=== PATIENT | male | born 1950 | race Caucasian/White ===

== ENCOUNTER 2021-05-23 18:33 | Emergency (ER) | payer MEDICARE ==
[~2021-05-23] VITALS: Ht 172.7 cm; Wt 90.0 kg
--- NOTE | 2021-05-23 18:36 | PHYS DOC ---
General Adult HPI: HPI: ".. I am having a pain flare.. in my Rt Stump.. It happen every so igor.. [place] with weather changes...I lost my leg with a farm tractor ran over it..." Patient is a 70 year old male who presents with above hx and right hip pain. Patient states he occasionally has severe pain in right hip from amputation as result of a tractor run over his right leg. Patient denies any recent falls. No fever or chills. The site is not hot to the touch. Is not erythemic. But it is tender to palpation. No recent travel. No specific ill contacts. Did receive Leonidas & Leonidas vaccine. Has not received flu vaccine yet. [facility] for [facility]. Primary area follow-up as at [facility] clinic. Dr. Lauren Review of Systems: Review of Systems: Constitutional: Denies fever or chills Eyes: Denies change in visual acuity HENT: Denies nasal congestion or sore throat Respiratory: Denies cough or shortness of breath Cardiovascular: Denies chest pain or edema GI: Denies abdominal pain, nausea, vomiting, bloody stools or diarrhea : Denies dysuria Musculoskeletal: Complains of right hip pain Integument: Denies rash Neurologic: Denies headache, focal weakness or sensory changes Endocrine: Denies polyuria or polydipsia Lymphatic: Denies swollen glands Psychiatric: Denies depression or anxiety Family History: Family History: Noncontributory to presentation Current Medications: Current Meds: See nursing for home meds Allergies: Allergies: Penicillin gabapentin Physical Exam: PE: Constitutional: Moderate acute distress, non-toxic appearance. [] HENT: Normocephalic, atraumatic, bilateral external ears normal, oropharynx moist, no oral exudates, nose normal. [] Eyes: PERRLA, EOMI, conjunctiva normal, no discharge. [] Neck: Normal range of motion, no tenderness, supple, no stridor. [] Cardiovascular:Heart rate regular rhythm, no murmur [] Lungs & Thorax: Bilateral breath sounds clear to auscultation [] Abdomen: Bowel sounds normal, soft, no tenderness, no masses, no pulsatile masses. [] Skin: Warm, dry, no erythema, no rash. [] Back: No tenderness, no CVA tenderness. [] Extremities: No tenderness, no cyanosis, no clubbing, ROM intact, no edema. [] Amputation at hip level right. Palpation elicits pain. Neurologic: Alert and oriented X 3, normal motor function, normal sensory function, no focal deficits noted. [] Psychologic: Affect anxious, judgement normal, mood normal. [] EKG: EKG: [] Radiology/Procedures: Radiology/Procedures: [] Heart Score: C/O Chest Pain: N/A Risk Factors: Risk Factors: DM, Current or recent (<one month) smoker, HTN, HLP, family history of CAD, obesity. Risk Scores: Score 0 - 3: 2.5% MACE over next 6 weeks - Discharge Home Score 4 - 6: 20.3% MACE over next 6 weeks - Admit for Clinical Observation Score 7 - 10: 72.7% MACE over next 6 weeks - Early Invasive Strategies Course & Med Decision Making: Course & Med Decision Making Pertinent Labs and Imaging studies reviewed. (See chart for details) Patient keep follow-up primary care. Further narcotic pain meds must be obtained from her primary care. May try lidocaine patches as needed for his phantom pain. Impression: 1. Right hip pain-phantom pain [] Dragon Disclaimer: Dragon Disclaimer: This electronic medical record was generated, in whole or in part, using a voice recognition dictation system. Departure Departure: Referrals: PCP,NO (PCP) Scripts Lidocaine (Lidocaine PATCH ) 1 Each Adh..patch 1 EACH TP DAILY for FOR LOCAL PAIN, #30 PATCH REMOVE AFTER 12 HOURS Prov: HARJINDER RIVERA MD 05/23/21 Naima Disclaimer This chart was dictated in whole or in part using Voice Recognition software in a busy, high-work load, and often noisy Emergency Department environment. It may contain unintended and wholly unrecognized errors or omissions. HARJINDER RIVERA MD May 23, 2021 18:36
[2021-05-23 18:42] VITALS: BP 120/86
[2021-05-23] MEDS ORDERED: KETOROLAC 60 MG/2 ML VIAL. IM ONE (19:00)
[2021-05-23] MEDS ORDERED: ORPHENADRINE CITRATE 60 MG/2 ML VIAL. IM ONE (19:00)
[2021-05-23] MEDS ORDERED: HYDROmorphone PF 2 MG/ML VIAL SQ ONE (19:00)
[2021-05-23] MEDS ORDERED: LIDO700A21 TP (19:17)
[2021-05-23] MEDS ORDERED: LIDOCAINE (700MG/PATCH) PATCH. TD ONE (19:20)
[2021-05-23] MEDS ORDERED: PATCH REMOVAL. MC SCH (21:00)
== END 2021-05-23 19:26 | disposition home or self-care (01) ==
LOC: ER 18:33
DX: M25.551 Pain in right hip (principal); Z89.621 Acquired absence of right hip joint; Z88.0 Allergy status to penicillin; Z88.8 Allergy status to other drugs, medicaments and biological substances
CPT/HCPCS: 96372; 99284; J1170; J1885; J2360

== ENCOUNTER 2021-05-24 07:51 | Emergency (ER) | payer MEDICARE ==
[~2021-05-24] VITALS: Ht 172.7 cm; Wt 90.0 kg
[2021-05-24 07:51] VITALS: BP 134/81
[~2021-05-24 07:51] MED LIST: LIDO700A21 TP
--- NOTE | 2021-05-24 08:24 | PHYS DOC ---
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 He was just here several hours ago for uncontrolled right stump pain. This is a chronic issue. There is been negative change in baseline health, trauma or other exposure. He was seen by a previous provider and had Toradol and IM Dilaudid injections which he stated lasted only couple of hours. He is subsequently back for repeat dose. Reports he drove here today. He has chronic pain specialist at [facility] but has not contacted these individuals regarding his recent exacerbation and pain. Review of Systems Review of Systems Fourteen body systems of review of systems have been reviewed. See HPI for pertinent positives and negative responses, other brownlee all other systems are negative, non-pertinent or non-contributory Allergies Allergies Allergies Coded Allergies Type Severity Reaction Last Updated Verified Penicillins Allergy Unknown Swelling 05/23/21 Yes gabapentin Allergy Unknown Swelling 05/23/21 Yes Physical Exam Physical Exam Constitutional: Well developed, well nourished, no acute distress, non-toxic appearance. HENT: Normocephalic, atraumatic, bilateral external ears normal, oropharynx moist, no oral exudates, nose normal. Eyes: PERRLA, EOMI, conjunctiva normal, no discharge. Neck: Normal range of motion, no tenderness, supple, no stridor. Cardiovascular: Heart rate regular per monitor Lungs & Thorax: No respiratory distress or accessory muscle use, bilateral chest rise Abdomen: Abdomen soft, non-tender, bowel sounds present in all quadrants, no guarding or rebound, nonacute abdomen. Skin: Warm, dry, no erythema, no rash. Back: No tenderness, no CVA tenderness. Extremities: No tenderness, no cyanosis, no clubbing, ROM intact, no edema. RLE amputation present and well appearing Neurologic: Alert and oriented X 3, grossly normal motor & sensory function, no focal deficits noted. Psychologic: Affect normal, mood normal, manipulative behavior Current Patient Data Vital Signs Vital Signs Date Time Temp Pulse Resp B/P (MAP) Pulse Ox O2 Delivery O2 Flow Rate FiO2 05/24/21 07:51 97.9 98 18 134/81 (98) 99 Room Air Vital Signs Date Time Temp Pulse Resp B/P (MAP) Pulse Ox O2 Delivery O2 Flow Rate FiO2 05/24/21 07:51 97.9 98 18 134/81 (98) 99 Room Air EKG EKG [] Radiology/Procedures Radiology/Procedures [] Heart Score C/O Chest Pain: No Risk Factors: Risk Factors: DM, Current or recent (<one month) smoker, HTN, HLP, family history of CAD, obesity. Risk Scores: Risk Factors: DM, Current or recent (<one month) smoker, HTN, HLP, family history of CAD, obesity. Course & Med Decision Making Course & Med Decision Making ABCs unremarkable Grayson here for pain control. He is being manipulative and changes his presenting story several times. States he tried calling all of his chronic pain physicians but later states his phone is broken and he has no calling capabilities. States he drove but won't drive home if he gets something I disclosed I do not feel comfortable giving more pain meds in light of him recently receiving IM dilaudid and fact that [facility] review shows he has numerous active narcotic prescriptions. I discussed and recommended grayson contact his outpatient physicians to discuss this issue further. No indication for further ER workup, intervention or admission. Patient discharged. Dragon Disclaimer Dragon Disclaimer This electronic medical record was generated, in whole or in part, using a voice recognition dictation system. Departure Departure: Impression: Primary Impression: Inadequate pain control Disposition: HOME / SELF CARE / HOMELESS Condition: STABLE Referrals: PCP,NO (PCP) Additional Instructions: As discussed prior to ER departure, I did not feel he was safe nor indicated to repeat any dose of narcotic pain medication given the fact that you just received some at our facility several hours prior and due to the fact that you do not have a wagon driver. You have PCP and pain management physicians whom you have not contacted, these individuals will know your personal case the best and given the fact that you have numerous narcotic pain prescriptions that are currently active, it is best you discuss changing your pain management relief with them. You are at high risk for polypharmacy and negative outcomes related to narcotic pain medication that include respiratory depression and potentially , please use prescribed medications as indicated only and do not take off label in attempt to improve your pain. MARGARITO MILLS DO May 24, 2021 08:24
== END 2021-05-24 08:32 | disposition home or self-care (01) ==
LOC: ER 07:51
DX: G89.29 Other chronic pain (principal); Z89.621 Acquired absence of right hip joint; Z88.0 Allergy status to penicillin; Z88.8 Allergy status to other drugs, medicaments and biological substances
CPT/HCPCS: 99282

== ENCOUNTER 2021-07-11 07:39 | Emergency (ER) | payer MEDICARE ==
[~2021-07-11] VITALS: Ht 172.7 cm; Wt 90.0 kg
[2021-07-11 07:42] VITALS: BP 160/98
--- NOTE | 2021-07-11 08:06 | PHYS DOC ---
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 Patient has right lower extremity amputation and has had chronic phantom pain in issues for years. He has been well managed in outpatient setting by [facility] system and other subspecialists. Reports he is pending [facility] pain management visit in 2 days time for consultation visit due to uncontrolled pain. Nonetheless, reports to our ER today seeking acute pain control for his chronic issues. Denies any recent trauma, falls or other known exacerbating factors. Just states the pain medications he has been using for years have not helped. He reports he contacted his primary care physician 2 weeks ago regarding this and they refused any further treatment for him which is why he has been seeking acute pain control at other facilities. States last time he was here he was given a prescription of pain medication to go home with and is eager for repeat prescription today Review of Systems Review of Systems Fourteen body systems of review of systems have been reviewed. See HPI for pertinent positives and negative responses, other brownlee all other systems are negative, non-pertinent or non-contributory Allergies Allergies Allergies Coded Allergies Type Severity Reaction Last Updated Verified Penicillins Allergy Unknown Swelling 05/23/21 Yes gabapentin Allergy Unknown Swelling 05/23/21 Yes Physical Exam Physical Exam Constitutional: Well developed, well nourished, no acute distress, non-toxic appearance. HENT: Normocephalic, atraumatic, bilateral external ears normal, oropharynx moist, no oral exudates, nose normal. Eyes: PERRLA, EOMI, conjunctiva normal, no discharge. Neck: Normal range of motion, no tenderness, supple, no stridor. Cardiovascular: Heart rate regular, sinus rhythm, no murmurs rubs or gallops Lungs & Thorax: Bilateral breath sounds clear to auscultation Abdomen: Bowel sounds normal, soft, no tenderness, no masses, no pulsatile masses. Nonsurgical abdomen, no peritoneal signs Skin: Warm, dry, no erythema, no rash. Back: No tenderness, no CVA tenderness. Extremities: No tenderness, no cyanosis, no clubbing, ROM intact, no edema. Right lower extremity AKA that is well-appearing. Pelvis nontender bilaterally Neurologic: Alert and oriented X 3, grossly normal motor & sensory function, no focal deficits noted. Psychologic: Affect normal, judgement normal, mood normal. EKG EKG [] Radiology/Procedures Radiology/Procedures [] Heart Score C/O Chest Pain: No Risk Factors: Risk Factors: DM, Current or recent (<one month) smoker, HTN, HLP, family history of CAD, obesity. Risk Scores: Risk Factors: DM, Current or recent (<one month) smoker, HTN, HLP, family history of CAD, obesity. Course & Med Decision Making Course & Med Decision Making ABCs unremarkable HPI and physical exam nonconcerning for any emergent or surgical issues Patient here for pain control for chronic process. [facility] reviewed, patient has been getting consistent clonazepam, oxycodone, pregabalin prescriptions [facility] I discussed with patient that I was not comfortable prescribing him any narcotic pain medications today as he is high risk for polypharmacy. Joint decision made for 5 mg subcu morphine injection with instructions to immediately call PCP for outpatient follow-up Naima Disclaimer Naima Disclaimer This electronic medical record was generated, in whole or in part, using a voice recognition dictation system. Departure Departure: Impression: Primary Impression: Chronic pain Disposition: HOME / SELF CARE / HOMELESS Condition: STABLE Referrals: PCP,SHERIE (PCP) Patient Instructions: Chronic Pain, Chronic Pain Management Additional Instructions: As discussed prior to ER departure, you need to contact your primary care physician to review ER visit today. The emergency room is not a place to seek continued care for your chronic pain control for which you are prescribed numerous high risk medications in outpatient setting. You should continue to follow-up with your primary care provider for continuity sake. Please keep your upcoming pain management visit at [facility] for further evaluation of your chronic right hip/lower extremity issues. If any emergent or surgical issues arise prior to outpatient follow-up please do not hesitate to come back for repeat evaluation. MARGARITO MILLS DO Jul 11, 2021 08:06
[2021-07-11] MEDS ORDERED: MORPHINE SULFATE 10 MG/ML SYRINGE. SQ ONE (08:30)
== END 2021-07-11 08:47 | disposition home or self-care (01) ==
LOC: ER 07:39
DX: G89.29 Other chronic pain (principal); F43.10 Post-traumatic stress disorder, unspecified; Z89.611 Acquired absence of right leg above knee; Z88.0 Allergy status to penicillin; Z88.8 Allergy status to other drugs, medicaments and biological substances
CPT/HCPCS: 96372; 99283; J2270

== ENCOUNTER 2021-08-23 10:08 | Emergency (ER) | payer MEDICARE ==
[~2021-08-23] VITALS: Ht 172.7 cm; Wt 90.0 kg
--- NOTE | 2021-08-23 10:24 | PHYS DOC ---
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 Patient is well-known to the emergency department. He frequently presents with pain in the stump where he had prior amputation on the right leg. Today, he comes in with the same pain stating that his normal medications, fentanyl patch and OxyContin or oxycodone have not been helping. Pain was worse over the last 24 hours. Secondary complaint is possible sinus infection. He complains of congestion in the upper airway and sinuses. Sore throat and sinus discomfort and congestion in the ears over the last 2 to 3 days. Has required antibiotics for sinus infection in the past. No fever. He is eating and drinking normally. No GI symptoms. Review of Systems Review of Systems Constitutional: Denies fever or chills Eyes: Denies change in visual acuity, redness, or eye pain HENT: As documented in HPI Respiratory: Denies cough or shortness of breath Cardiovascular: No additional information not addressed in HPI GI: Denies abdominal pain, nausea, vomiting, bloody stools or diarrhea : Denies dysuria or hematuria Musculoskeletal: Chronic stump pain Integument: Denies rash or skin lesions Neurologic: Denies headache All other systems were reviewed and found to be within normal limits, except as documented in this note. Allergies Allergies Allergies Coded Allergies Type Severity Reaction Last Updated Verified Penicillins Allergy Unknown Swelling 05/23/21 Yes gabapentin Allergy Unknown Swelling 05/23/21 Yes Physical Exam Physical Exam Constitutional: Well developed, well nourished, no acute distress, non-toxic appearance. HENT: TMs are dull bilaterally. Mild sinus tenderness to palpate over frontal and maxillary sinuses. Nares are congested. Posterior nasal drainage is present on exam of the posterior oropharynx. Eyes: PERRLA, EOMI, conjunctiva normal, no discharge. Neck: Normal range of motion, no tenderness, supple, no stridor. Cardiovascular:Heart rate regular rhythm Lungs & Thorax: Bilateral breath sounds clear to auscultation Skin: Warm, dry, no erythema, no rash. Extremities: chronic phantom limb pain Neurologic: Alert and oriented X 3 Psychologic: Affect normal EKG EKG [] Radiology/Procedures Radiology/Procedures [] Heart Score C/O Chest Pain: N/A Risk Factors: Risk Factors: DM, Current or recent (<one month) smoker, HTN, HLP, family history of CAD, obesity. Risk Scores: Risk Factors: DM, Current or recent (<one month) smoker, HTN, HLP, family history of CAD, obesity. Course & Med Decision Making Course & Med Decision Making Pertinent Labs and Imaging studies reviewed. (See chart for details) ED summary: Patient seen in the ER as documented above. Requesting additional medication for pain in addition to what he would normally take. In the ER, he is given 1 dose of intramuscular morphine. Also started on azithromycin for treatment of presumed sinus infection. He is stable for discharge home and will sweet pickle maker the rest of his Z-Miguel at the pharmacy later today with the next dose being due tomorrow. No indication for additional work-up today or admission to the hospital. Recommended that he follow-up with his primary care doctor specifically regarding control of his chronic pain, but also if his upper respiratory symptoms do not improve. Dragon Disclaimer Dragon Disclaimer This electronic medical record was generated, in whole or in part, using a voice recognition dictation system. Departure Departure: Impression: Primary Impression: Upper respiratory infection Additional Impression: Chronic pain Disposition: HOME / SELF CARE / HOMELESS Condition: GOOD Referrals: NON,STAFF (PCP) Patient Instructions: Chronic Pain, Sinusitis, [id number] Scripts Azithromycin (AZITHROMYCIN TABLET) 250 Mg Tablet 250 MG PO DAILY for ANTI-BIOTIC for 4 Days, #4 TAB 0 Refills Prov: MOIRA SUAREZ DO 08/23/21 Problem Qualifiers MOIRA SUAREZ DO Aug 23, 2021 10:24
[2021-08-23 10:48] VITALS: BP 160/98
[2021-08-23] MEDS ORDERED: MORPHINE SULFATE 4 MG/ML DISP.SYRIN. IM ONE (11:00)
[2021-08-23] MEDS ORDERED: AZITHROMYCIN 250 MG TABLET. PO ONE (11:00)
[2021-08-23] MEDS ORDERED: AZIT250T6 PO (11:04)
== END 2021-08-23 11:16 | disposition home or self-care (01) ==
LOC: ER 10:08
DX: J06.9 Acute upper respiratory infection, unspecified (principal); G89.29 Other chronic pain; Z89.621 Acquired absence of right hip joint; Z88.0 Allergy status to penicillin; Z88.8 Allergy status to other drugs, medicaments and biological substances
CPT/HCPCS: 96372; 99283; J2270

== ENCOUNTER 2021-09-08 09:30 | Emergency (ER) | payer MEDICARE ==
[~2021-09-08] VITALS: Ht 172.7 cm; Wt 90.9 kg
[~2021-09-08 09:30] MED LIST changes: +AZIT250T6 PO
[2021-09-08] MEDS ORDERED: IV NORMAL SALINE 1,000ML 1,000 ML IV ONE (10:15)
--- NOTE | 2021-09-08 10:16 | PHYS DOC ---
Past History Additional Past Medical Histor: PTSD Past Surgical History: Cholecystectomy Additional Past Surgical Histo: PAIN STIMULATOR, RIGHT LEG AMPUTATION Alcohol Use: None General Adult EDM: Chief Complaint: FLANK PAIN HPI: HPI: Patient is a 71-year-old male who presents to the emergency department today for left flank pain that started last night. Patient is also reporting right phantom hip pain. He reports that he occasionally experiences this after his right leg amputation. The last episode of phantom pain was a month ago. Patient rates his pain 8 out of 10. He has been taking oxycodone at home for it. Patient has a history of bladder cancer and kidney stones. He denies nausea, vomiting, diarrhea, urinary symptoms, blood in his stools, hematuria, fevers. Review of Systems: Review of Systems: Constitutional: See HPI GI: See HPI : See HPI Musculoskeletal: See HPI Allergies: Allergies: Allergies Coded Allergies Type Severity Reaction Last Updated Verified Penicillins Allergy Unknown Swelling 09/08/21 Yes gabapentin Allergy Unknown Swelling 09/08/21 Yes Physical Exam: PE: Constitutional: Well developed, well nourished, no acute distress, non-toxic appearance. [] HENT: Normocephalic, atraumatic, bilateral external ears normal, oropharynx moist, no oral exudates, nose normal. [] Eyes: PERRL, EOMI, conjunctiva normal, no discharge. [] Neck: Normal range of motion, no tenderness, supple, no stridor. [] Cardiovascular:Heart rate regular rhythm, no murmur [] Lungs & Thorax: Bilateral breath sounds clear to auscultation [] Abdomen: Bowel sounds normal, soft, no tenderness, no masses, no pulsatile masses. [] Skin: Warm, dry, no erythema, no rash. [] Back: No tenderness, left CVA tenderness Extremities: No tenderness, no cyanosis, no clubbing, ROM intact, no edema. [] Right leg amputation Neurologic: Alert and oriented X 3, normal motor function, normal sensory function, no focal deficits noted. [] Psychologic: Affect normal, judgement normal, mood normal. [] Current Patient Data: Labs: Laboratory Tests Test 09/08/21 09:45 09/08/21 10:20 Urine Collection Type Unknown Urine Color Yellow Urine Clarity Clear Urine pH 5.5 Urine Specific [place] 1.020 Urine Protein 30 mg/dl Urine Glucose (UA) 100 mg/dL Urine Ketones (Stick) Neg mg/dL Urine Blood Neg Urine Nitrite Neg Urine Bilirubin Neg Urine Urobilinogen Dipstick 0.2 mg/dL Urine Leukocyte Esterase Neg Urine RBC 0 /HPF Urine WBC 5-10 /HPF Urine Squamous Epithelial Cells Few /LPF Urine Bacteria Few /HPF Urine Mucus Slight /LPF White Blood Count 6.6 x10^3/uL Red Blood Count 4.32 x10^6/uL Hemoglobin 13.0 g/dL Hematocrit 38.8 % Mean Corpuscular Volume 90 fL Mean Corpuscular Hemoglobin 30 pg Mean Corpuscular Hemoglobin Concent 34 g/dL Red Cell Distribution Width 15.3 % Platelet Count 209 x10^3/uL Neutrophils (%) (Auto) 59 % Lymphocytes (%) (Auto) 28 % Monocytes (%) (Auto) 9 % Eosinophils (%) (Auto) 3 % Basophils (%) (Auto) 1 % Neutrophils # (Auto) 3.9 x10^3uL Lymphocytes # (Auto) 1.9 x10^3/uL Monocytes # (Auto) 0.6 x10^3/uL Eosinophils # (Auto) 0.2 x10^3/uL Basophils # (Auto) 0.1 x10^3/uL Sodium Level 136 mmol/L Potassium Level 4.0 mmol/L Chloride Level 104 mmol/L Carbon Dioxide Level 26 mmol/L Anion Gap 6 Blood Urea Nitrogen 22 mg/dL Creatinine 1.1 mg/dL Estimated GFR (Cockcroft-Gault) 65.8 BUN/Creatinine Ratio 20 Glucose Level 142 mg/dL Calcium Level 9.4 mg/dL Total Bilirubin 0.2 mg/dL Aspartate Amino Transf (AST/SGOT) 30 U/L Alanine Aminotransferase (ALT/SGPT) 49 U/L Alkaline Phosphatase 69 U/L Total Protein 7.0 g/dL Albumin 3.3 g/dL Albumin/Globulin Ratio 0.9 Lipase 114 U/L Current Medications Medications (Trade) Dose Ordered Sig/Jenny Route PRN Reason Start Time Stop Time Status Last Admin Dose Admin Sodium Chloride 1,000 ml @ 1,000 mls/hr 1X ONCE IV 09/08/21 10:15 09/08/21 11:14 DC 09/08/21 10:36 Fentanyl Citrate (Fentanyl 2ml Vial) 50 mcg 1X ONCE IVP 09/08/21 10:15 09/08/21 10:16 DC 09/08/21 10:37 Fentanyl Citrate (Fentanyl 2ml Vial) 50 mcg 1X ONCE IVP 09/08/21 11:45 09/08/21 11:46 DC 09/08/21 11:39 Vital Signs: Vital Signs Date Time Temp Pulse Resp B/P (MAP) Pulse Ox O2 Delivery O2 Flow Rate FiO2 09/08/21 09:50 98.7 93 18 167/91 (116) 94 Room Air EKG: EKG: [] Radiology/Procedures: Radiology/Procedures: []PROCEDURE: CT ABDOMEN PELVIS WO CONTRAST Axial CT images of the abdomen and pelvis with coronal and sagittal reformats were performed without contrast per renal colic protocol. Exposure: One or more of the following individualized dose reduction techniques were utilized for this examination: 1. Automated exposure control 2. Adjustment of the mA and/or kV according to patient size 3. Use of iterative reconstruction technique Indication: Reason: left flank pain r/o kidney stone / Spl. Instructions: / History: Comparison: None. Findings: Multiple bilateral nonobstructive collecting system calculi are identified. There are multiple cysts seen throughout the bilateral kidneys. Multiple of these cysts are hyperdense. The largest suspicious cyst is seen in the right mid pole posterior kidney within the parenchyma measuring 2.6 x 2.3 cm. There is a similar hyperdense cyst in the left mid pole kidney measuring 1.3 cm. Several complex cysts are seen at the inferior pole of the right kidney. Additionally there is what appears to be a complex septated cyst with normal density in the right upper pole measuring 2.3 x 1.8 cm. No hydronephrosis, perinephric fat stranding, or hydroureter are seen bilaterally. Patient status post cholecystectomy. Liver is hypodense relative to the spleen. The appendix is visualized and is unremarkable in appearance. There is dense calcific atherosclerotic disease particularly in the right common iliac artery. 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 There is associated remodeling of the acetabulum. There is diffuse osteopenia. There is age-appropriate degenerative change. Neurostimulator devices are identified in the lumbar spine. The remainder of the non contrasted abdomen and pelvis is normal in appearance, although evaluation is limited on an unenhanced exam. Impression: 1. Nonobstructive collecting system calculi bilaterally. Additionally there are multiple complex cysts identified within the bilateral kidneys. Recommend three- phase CT study or at the least ultrasound to document the internal contents of the cyst as a solid mass cannot be excluded particularly in the hyperdense cysts identified. 2. Hepatic steatosis. 3. Postoperative changes of the lower extremities described above. Electronically signed by: Alex Valdivia MD (09/08/2021 10:39 AM) [id number] DICTATED AND SIGNED BY: ALEX VALDIVIA MD DATE: 09/08/21 1035 CC: KATELYN DAWSON APRN; SATISH GUEVARA MD ~ STATUS: REG ER ORD. PHYSICIAN: KATELYN DAWSON APRN REASON: bilateral cyst vs masses on kidneys PROCEDURE: RENAL COMPLETE BILATERAL INDICATION: Reason: bilateral cyst vs masses on kidneys / Spl. Instructions: / History: COMPARISON: CT from same day TECHNIQUE: Grayscale and color ultrasound images obtained of the bilateral kidneys and bladder. FINDINGS: Right Kidney: 114 mm. Left Kidney: 115 mm. No hydronephrosis bilaterally. Multiple bilateral renal cysts are identified. Largest of which on right measures 47 x 38 mm. Largest on the left measures up to about 15 mm. Many of the bilateral renal lesions seen on CT are not well seen on this examination therefore not characterized. Bladder: Prevoid urinary bladder volume is 90 cc. IMPRESSION: * There are numerous bilateral renal lesions seen on recent CT with the majority of these not well evaluated on ultrasound secondary to overlying structures obscuring. Again the higher density lesions could be secondary to either high density cystic lesions or solid mass and given that this ultrasound is highly limited if more complete evaluation is needed CT or MRI renal protocol could further assess. Electronically signed by: Emely Prince MD (09/08/2021 12:26 PM) [id number] DICTATED AND SIGNED BY: EMELY PRINCE MD DATE: 09/08/21 1222 CC: KATELYN DAWSON APRN; SATISH GUEVARA MD ~ Heart Score: C/O Chest Pain: N/A Risk Factors: Risk Factors: DM, Current or recent (<one month) smoker, HTN, HLP, family history of CAD, obesity. Risk Scores: Score 0 - 3: 2.5% MACE over next 6 weeks - Discharge Home Score 4 - 6: 20.3% MACE over next 6 weeks - Admit for Clinical Observation Score 7 - 10: 72.7% MACE over next 6 weeks - Early Invasive Strategies Course & Med Decision Making: Course & Med Decision Making Pertinent Labs and Imaging studies reviewed. (See chart for details) [] Patient resents to the emergency department for left flank pain that started last night. He is also reporting right phantom limb pain. Work-up in the ER consisted of blood work, urinalysis and CT imaging of abdomen and pelvis rule out kidney stones as patient does have a history. Patient treated with IV fluids and pain medication. CBC, CMP and lipase were unremarkable. Patient's urinalysis shows few bacteria and 5-10 white blood cells with few squamous cells, no leukocytes or nitrites or blood. This is likely contaminated. CT scan shows nonobstructing calculi in the collecting system and possible cyst on bilateral kidneys. Imaging also showed right hip limitation age-appropriate degenerative changes. The radiologist recommended a ultrasound of the abdomen to determine if these were solid masses versus cysts which was ordered which was nondiagnostic. Following treatment in the emergency department, patient reports that his pain has improved. He has oxycodone at home that he can take for his chronic pain. I advised him to follow-up with his primary care provider at the [facility]. I discussed with patient all findings and diagnostic testing as well as the need to follow- up with PCP for further evaluation and treatment or return to the ER if any new or worsening symptoms. Strict return precautions were also discussed at length. Patient voiced understanding and agreement with the plan. Patient is hemodynamically stable at the time of disposition. [place] Disclaimer: Naima Disclaimer: This electronic medical record was generated, in whole or in part, using a voice recognition dictation system. Departure Departure: Impression: Primary Impression: Flank pain Disposition: 01 HOME / SELF CARE / HOMELESS Condition: GOOD Referrals: SATISH GUEVARA MD (PCP) Patient Instructions: Flank Pain, [id number] Additional Instructions: You are seen in the emergency department today for flank pain. As we discussed, you have some kidney stones in your kidneys and possible cyst on your kidneys that you will need to follow-up with your primary care provider regarding. Your blood work was unremarkable. Your urinalysis was likely contaminated with skin cells but if you start to develop urinary symptoms like pain with urination please see your primary care provider. Please continue taking your oxycodone that you have at home. Follow-up with your primary care provider regarding your ER visit within 2 days. Return to the emergency department if you develop any urinary symptoms, increased pain, loss of bowel or bladder, blood in your urine, loss of sensation in your groin, nausea, vomiting, high fevers refractory to treatment or any new or worsening concerns. KATELYN DAWSON MANAGEMENT ENGINEER Sep 08, 2021 10:16
[2021-09-08 10:29] LABS: CLARITY,URINE CLEAR; COLOR,URINE YELLOW; GLUCOSE,URINE 100 mg/dL (NEG)
[2021-09-08 10:30] LABS: NITRITE,URINE NEG (NEG); UROBILINOGEN,URINE 0.2 mg/dL (0.2 mg/dL)
[2021-09-08 10:31] LABS: BACTERIA,URINE FEW /HPF (0-FEW); RBC,URINE 0 /HPF (0-2); SQUAMOUS EPITHELIAL CELL,UR FEW /LPF
[2021-09-08 10:40] LABS: BASO # 0.1 x10^3/uL (0.0-0.2); BASO % 1 % (0-3); EOS # 0.2 x10^3/uL (0.0-0.7); EOS % 3 % (0-3); HEMATOCRIT 38.8 % (39.0-53.0); LYMPH # 1.9 x10^3/uL (1.0-4.8); LYMPH % 28 % (24-48); MEAN CORPUSCULAR HEMOGLOBIN 30 pg (25-35); MEAN CORPUSCULAR HGB CONC 34 g/dL (31-37); MEAN CORPUSCULAR VOLUME 90 fL (79-100); MONO # 0.6 x10^3/uL (0.0-1.1); MONO % 9 % (0-9); NEUT # 3.9 x10^3uL (1.8-7.7); NEUT % 59 % (31-73); PLATELET COUNT 209 x10^3/uL (140-400); RED BLOOD COUNT 4.32 x10^6/uL (4.30-5.70); RED CELL DISTRIBUTION WIDTH 15.3 % (11.5-14.5); WHITE BLOOD COUNT 6.6 x10^3/uL (4.0-11.0)
--- NOTE | 2021-09-08 10:41 | RAD ---
Axial CT images of the abdomen and pelvis with coronal and sagittal reformats were performed without contrast per renal colic protocol. Exposure: One or more of the following individualized dose reduction techniques were utilized for thi s examination: 1. Automated exposure control 2. Adjustment of the mA and/or kV according to patient size 3. Use of iterative reconstruction technique Indication: Reason: left flank pain r/o kidney stone / Spl. Instructions: / History: Comparison: None. Findings: Multiple bilateral nonobstructive collecting system calculi are identified. There are multiple cysts seen throughout the bilateral kidneys. Multiple of these cysts are hyperdense. The largest suspicious cyst is seen in the right mid pole posterior kidney within the parenchyma measuring 2.6 x 2.3 cm. Th ere is a similar hyperdense cyst in the left mid pole kidney measuring 1.3 cm. Several complex cysts are seen at the inferior pole of the right kidney. Additionally there is what appears to be a complex septated cyst with normal density in the right upper pole measuring 2.3 x 1.8 cm. No hydronephrosis , perinephric fat stranding, or hydroureter are seen bilaterally. Patient status post cholecystectomy. Liver is hypodense relative to the spleen. The appendix is visua lized and is unremarkable in appearance. There is dense calcific atherosclerotic disease particularly in the right common iliac artery. Patient status post left hip arthroplasty and amputation of the ri ght hip. There is associated remodeling of the acetabulum. There is diffuse osteopenia. There is age- appropriate degenerative change. Neurostimulator devices are identified in the lumbar spine. The pavel chris of the non contrasted abdomen and pelvis is normal in appearance, although evaluation is limited on an unenhanced exam. Impression: 1. Nonobstructive collecting system calculi bilaterally. Additionally there are multiple complex cyst s identified within the bilateral kidneys. Recommend three-phase CT study or at the least ultrasound to document the internal contents of the cyst as a solid mass cannot be excluded particularly in the hyperdense cysts identified. 2. Hepatic steatosis. 3. Postoperative changes of the lower extremities described above. Electronically signed by: Alex Valdivia MD (09/08/2021 10:39 AM) [id number]
[2021-09-08 10:48] LABS: CALCIUM 9.4 mg/dL (8.5-10.1); CREATININE 1.1 mg/dL (0.7-1.3); GFR 65.8
[2021-09-08 10:53] LABS: ALBUMIN 3.3 g/dL (3.4-5.0); ALBUMIN/GLOBULIN RATIO 0.9 (1.0-1.7); TOTAL BILIRUBIN 0.2 mg/dL (0.2-1.0)
--- NOTE | 2021-09-08 12:29 | RAD ---
INDICATION: Reason: bilateral cyst vs masses on kidneys / Spl. Instructions: / History: COMPARISON: CT from same day TECHNIQUE: Grayscale and color ultrasound images obtained of the bilateral kidneys and bladder. FINDINGS: Right Kidney: 114 mm. Left Kidney: 115 mm. No hydronephrosis bilaterally. Multiple bilateral renal cysts are identified. Largest of which on right measures 47 x 38 mm. Largest on the left measures up to about 15 mm. Many of the bilateral renal lesions seen on CT are not well seen on this examination therefore not characterized. Bladder: Prevoid urinary bladder volume is 90 cc. IMPRESSION: * There are numerous bilateral renal lesions seen on recent CT with the majority of these not well e valuated on ultrasound secondary to overlying structures obscuring. Again the higher density lesions could be secondary to either high density cystic lesions or solid mass and given that this ultrasound is highly limited if more complete evaluation is needed CT or MRI renal protocol could further asses s. Electronically signed by: Kemal Lauren MD (09/08/2021 12:26 PM) [id number]
[2021-09-08 13:00] VITALS: BP 140/87
[2021-09-12] MEDS ORDERED: LEVO750T5 PO (13:07)
== END 2021-09-08 13:05 | disposition home or self-care (01) ==
LOC: ER 09:30
DX: R10.9 Unspecified abdominal pain (principal); M25.551 Pain in right hip; Z89.611 Acquired absence of right leg above knee; Z87.442 Personal history of urinary calculi; Z90.49 Acquired absence of other specified parts of digestive tract; Z88.0 Allergy status to penicillin; Z88.8 Allergy status to other drugs, medicaments and biological substances
CPT/HCPCS: 36415; 74176; 76770; 80053; 81001; 83690; 85025; 87077; 87086; 87186; 96374; 96376; 99284; J3010; J7030; 99285

== ENCOUNTER 2021-09-08 23:16 | Emergency (ER) | payer MEDICARE ==
[~2021-09-08] VITALS: Ht 172.7 cm; Wt 90.9 kg
[2021-09-08 23:27] VITALS: BP 140/87
--- NOTE | 2021-09-08 23:27 | PHYS DOC ---
Past History Additional Past Medical Histor: PTSD Past Surgical History: Cholecystectomy Additional Past Surgical Histo: PAIN STIMULATOR, RIGHT LEG AMPUTATION Alcohol Use: None General Adult HPI: HPI: ". I was here earlier.. and they did big work up... but I having a lot of pain.. It may be my phatom pain.. I do have a nerve stimulator.. and usually see the pain clinic at ... I just need some tonight... it may be weather.. " Patient is a 71 year old male who presents with above hx and complaints lower back with right hip leg pain. Pt. follows with Dr Ferris. Pt. has hx of phantom pain. Patient has experienced periodic episodes where he has severe right leg pain after his amputation. Last episode with proxy 1 month ago. Currently rates his pain 8 out of 10. Has been taking oxycodone at home. Does have a history of bladder cancer,kidney stones, gallstones but status post cholecystectomy. Has had placement of stimulator and radioablation. Patient denies any fever chills. No nausea, vomiting, diarrhea, urinary symptoms blood in stools hematuria recent trauma. Review of Systems: Review of Systems: Constitutional: Denies fever or chills Eyes: Denies change in visual acuity HENT: Denies nasal congestion or sore throat Respiratory: Denies cough or shortness of breath Cardiovascular: Denies chest pain or edema GI: Denies abdominal pain, nausea, vomiting, bloody stools or diarrhea : Denies dysuria Musculoskeletal: Complains of right leg and hip pain Integument: Denies rash Neurologic: Denies headache, focal weakness or sensory changes Endocrine: Denies polyuria or polydipsia Lymphatic: Denies swollen glands Psychiatric: Denies depression or anxiety Family History: Family History: Noncontributory to presentation Current Medications: Current Meds: See nursing for home meds Allergies: Allergies: Allergies Coded Allergies Type Severity Reaction Last Updated Verified Penicillins Allergy Unknown Swelling 09/08/21 Yes gabapentin Allergy Unknown Swelling 09/08/21 Yes Physical Exam: PE: Constitutional: Moderate acute distress, non-toxic appearance. [] HENT: Normocephalic, atraumatic, bilateral external ears normal, oropharynx moist, no oral exudates, nose normal. [] Eyes: PERRLA, EOMI, conjunctiva normal, no discharge. [] Neck: Normal range of motion, no tenderness, supple, no stridor. [] Cardiovascular:Heart rate regular rhythm, no murmur [] Lungs & Thorax: Bilateral breath sounds equal apex auscultation [] Abdomen: Bowel sounds normal, soft, no tenderness, no masses, no pulsatile masses. Scar Skin: Warm, dry, no erythema, no rash. [] Back: No tenderness, no CVA tenderness. [] Extremities: No tenderness, no cyanosis, no clubbing, ROM intact, no edema. Complains of right hip and leg pain. Amputation at pelvic level. Neurologic: Alert and oriented X 3, normal motor function, normal sensory function, no focal deficits noted. [] Psychologic: Affect anxious judgement normal, mood normal. [] EKG: EKG: [] Radiology/Procedures: Radiology/Procedures: Reviewed earlier CT [] Heart Score: C/O Chest Pain: N/A Risk Factors: Risk Factors: DM, Current or recent (<one month) smoker, HTN, HLP, family history of CAD, obesity. Risk Scores: Score 0 - 3: 2.5% MACE over next 6 weeks - Discharge Home Score 4 - 6: 20.3% MACE over next 6 weeks - Admit for Clinical Observation Score 7 - 10: 72.7% MACE over next 6 weeks - Early Invasive Strategies Course & Med Decision Making: Course & Med Decision Making Pertinent Labs and Imaging studies reviewed. (See chart for details) Take meds. Directed. Follow-up with pain center. May need additional blocks or epidurals. Take meds previous directed. Impression: 1. Chronic Pain 2. Hx. of phantom right leg pain [] Dragon Disclaimer: Dragon Disclaimer: This electronic medical record was generated, in whole or in part, using a voice recognition dictation system. Departure Departure: Referrals: SATISH GUEVARA MD (PCP) Naima Disclaimer This chart was dictated in whole or in part using Voice Recognition software in a busy, high-work load, and often noisy Emergency Department environment. It may contain unintended and wholly unrecognized errors or omissions. HARJINDER RIVERA MD Sep 08, 2021 23:27
[2021-09-08] MEDS ORDERED: KETOROLAC 60 MG/2 ML VIAL. IM ONE ×2 (23:45)
[2021-09-08] MEDS ORDERED: methylPREDNISolone ACETATE 40 MG/ML VIAL. IM ONE (23:45)
[2021-09-08] MEDS ORDERED: ORPHENADRINE CITRATE 60 MG/2 ML VIAL. IM ONE (23:45)
[2021-09-09] MEDS ORDERED: MORPHINE SULFATE 10 MG/ML SYRINGE. ONE (00:41)
[2021-09-09] MEDS ORDERED: MORPHINE SULFATE 10 MG/ML SYRINGE. SQ ONE (00:45)
[2021-09-12] MEDS ORDERED: LEVO750T5 PO (13:07)
== END 2021-09-09 00:53 | disposition home or self-care (01) ==
LOC: ER 23:23
DX: G89.29 Other chronic pain (principal); M54.59 Other low back pain; M25.551 Pain in right hip; M79.604 Pain in right leg; Z85.51 Personal history of malignant neoplasm of bladder; Z87.442 Personal history of urinary calculi; Z88.0 Allergy status to penicillin; Z88.8 Allergy status to other drugs, medicaments and biological substances
CPT/HCPCS: 96372; 99284; J1030; J2270; J2360

== ENCOUNTER 2021-09-13 23:46 | Emergency (ER) | payer MEDICARE ==
[~2021-09-13] VITALS: Ht 172.7 cm; Wt 90.9 kg
[~2021-09-13 23:46] MED LIST changes: +LEVO750T5 PO
--- NOTE | 2021-09-14 00:12 | PHYS DOC ---
Past History Additional Past Medical Histor: PTSD Past Surgical History: Cholecystectomy Additional Past Surgical Histo: PAIN STIMULATOR, RIGHT LEG AMPUTATION Alcohol Use: None Adult General Chief Complaint Chief Complaint: MULTIPLE COMPLAINTS HPI HPI Patient is a 71-year-old male who presents with a chief complaint of urinary tract infection. States he was here couple of days ago and diagnosed with this but could not afford the antibiotics, stating it was $200 for 7 days. States he still having some dysuria. Denies any recent traumas, travels, fevers, chest pain, shortness of breath, abdominal pain, nausea, vomiting, diarrhea. Denies any hematuria. Review of Systems Review of Systems Review of systems otherwise unremarkable except noted in HPI Allergies Allergies Allergies Coded Allergies Type Severity Reaction Last Updated Verified Penicillins Allergy Unknown Swelling 09/08/21 Yes gabapentin Allergy Unknown Swelling 09/08/21 Yes Physical Exam Physical Exam Constitutional: Well developed, well nourished, no acute distress, non-toxic appearance. [] HENT: Normocephalic, atraumatic, bilateral external ears normal, oropharynx moist, no oral exudates, nose normal. [] Eyes: conjunctiva normal, no discharge. [] Neck: Normal range of motion, no tenderness, supple, no stridor. [] Cardiovascular:Heart rate regular rhythm, no murmur [] Lungs & Thorax: No respiratory distress Skin: Warm, dry, no erythema, no rash. [] Extremities: No tenderness, no cyanosis, no clubbing, ROM intact, no edema. [] Neurologic: Alert and oriented X 3, normal motor function, normal sensory function, able to sit, stand and walk without issue, no focal deficits noted. [] Psychologic: Affect normal, judgement normal, mood normal. [] Current Patient Data Vital Signs Vital Signs Date Time Temp Pulse Resp B/P (MAP) Pulse Ox O2 Delivery O2 Flow Rate FiO2 09/14/21 00:01 97.7 83 24 127/81 (96) 92 EKG EKG [] Radiology/Procedures Radiology/Procedures [] Heart Score C/O Chest Pain: No Risk Factors: Risk Factors: DM, Current or recent (<one month) smoker, HTN, HLP, family history of CAD, obesity. Risk Scores: Risk Factors: DM, Current or recent (<one month) smoker, HTN, HLP, family history of CAD, obesity. Course & Med Decision Making Course & Med Decision Making Patient is a 71-year-old male who presents with Vital signs not concerning. Physical exam noted above. Given pain medicine. Discussed symptom treatment at home. Started on Keflex. Discussed good Rx to fill Keflex. Advised to follow-up in the morning with primary care physician. Gave return precautions to the ED. Patient grateful, verbalized understanding and agreed with plan of discharge. [] Dragon Disclaimer Dragon Disclaimer This electronic medical record was generated, in whole or in part, using a voice recognition dictation system. Departure Departure: Impression: Primary Impression: Urinary tract infection Disposition: HOME / SELF CARE / HOMELESS Condition: STABLE Referrals: SATISH GUEVARA MD (PCP) Patient Instructions: Urinary Tract Infection Additional Instructions: Thank you for coming into the emergency department tonight and allowing us to take care of you. Please read the attached information carefully to go over things we discussed. You can take Tylenol, ibuprofen and Benadryl at home as needed. Please take antibiotics as prescribed and until gone. Please follow-up in the morning with your primary care physician update on your ED visit and set up a follow-up. Please come back with new or concerning symptoms as discussed. Scripts Cephalexin (KEFLEX) 500 Mg Capsule 1 CAP PO TID for UTI for 7 Days, #21 CAP Prov: ALEXIS OLEARY MD 09/14/21 ALEXIS OLEARY MD Sep 14, 2021 00:12
[2021-09-14 00:24] LABS: CLARITY,URINE CLEAR; COLOR,URINE YELLOW; GLUCOSE,URINE NEG (NEG); NITRITE,URINE NEG (NEG); UROBILINOGEN,URINE 0.2 mg/dL (0.2 mg/dL)
[2021-09-14 00:26] LABS: BACTERIA,URINE FEW /HPF (0-FEW); RBC,URINE OCC /HPF (0-2); WBC,URINE >40 /HPF (0-4)
[2021-09-14] MEDS ORDERED: CEPH500C PO (00:41)
[2021-09-14] MEDS ORDERED: oxyCODONE IR 5 MG TABLET ONE (00:45)
[2021-09-14] MEDS ORDERED: KETOROLAC 30 MG/ML VIAL. IM ONE (00:45)
[2021-09-14] MEDS ORDERED: oxyCODONE IR 5 MG TABLET PO ONE (01:00)
[2021-09-14] MEDS ORDERED: CEPHALEXIN 250 MG CAPSULE PO ONE (01:00)
== END 2021-09-14 00:56 | disposition home or self-care (01) ==
LOC: ER 23:46
DX: N39.0 Urinary tract infection, site not specified (principal); Z90.49 Acquired absence of other specified parts of digestive tract; Z88.0 Allergy status to penicillin; Z88.8 Allergy status to other drugs, medicaments and biological substances
CPT/HCPCS: 81001; 87077; 87086; 87186; 96372; 99283; J1885

== ENCOUNTER 2021-09-29 18:53 | Emergency (ER) | payer MEDICARE ==
[~2021-09-29] VITALS: Ht 172.7 cm; Wt 90.9 kg
[~2021-09-29 18:53] MED LIST changes: +CEPH500C PO
[2021-09-29 19:15] VITALS: BP 147/84
--- NOTE | 2021-09-29 19:23 | PHYS DOC ---
Past History Additional Past Medical Histor: PTSD (KATELYN DAWSON APRN) Past Surgical History: Cholecystectomy Additional Past Surgical Histo: PAIN STIMULATOR, RIGHT LEG AMPUTATION (KATELYN DAWSON APRN) Alcohol Use: None (KATELYN DAWSON APRN) General Adult EDM: Chief Complaint: PAIN CONTROL HPI: HPI: Patient is a 71-year-old male who presents to the emergency department for right lower back and hip pain. Patient reports chronic pain and denies any new injuries. He reports that he has a right leg amputation for and experiences phantom pain. He just takes oxycodone and fentanyl patches at home for his pain but he reports that every now and then it gets bad and he requires additional pain management. Patient rates his pain 8 out of 10. He denies any injury, loss of bowel or bladder, saddle anesthesias. (KATELYN DAWSON APRN) Review of Systems: Review of Systems: GI: See HPI : See HPI Musculoskeletal: See HPI Integument: See HPI Neurologic: See HPI (KATELYN DAWSON APRN) Allergies: Allergies: Allergies Coded Allergies Type Severity Reaction Last Updated Verified Penicillins Allergy Unknown Swelling 09/08/21 Yes gabapentin Allergy Unknown Swelling 09/08/21 Yes (KATELYN DAWSON APRN) Physical Exam: PE: Constitutional: Well developed, well nourished, no acute distress, non-toxic appearance. [] HENT: Normocephalic, atraumatic, bilateral external ears normal, oropharynx moist, no oral exudates, nose normal. [] Eyes: PERRL, EOMI, conjunctiva normal, no discharge. [] Neck: Normal range of motion, no tenderness, supple, no stridor. [] Cardiovascular: Normal peripheral perfusion Lungs & Thorax: Normal work of breathing, no tachypnea Abdomen: Soft and flat Skin: Warm, dry, no erythema, no rash. [] Back: No tenderness, normal range of motion Extremities: No tenderness, no cyanosis, no clubbing, ROM intact, no edema. [] Right leg amputation at hip Neurologic: Alert and oriented X 3, normal motor function, normal sensory function, no focal deficits noted. [] Psychologic: Affect normal, judgement normal, mood normal. [] (KATELYN DAWSON APRN) EKG: EKG: [] (KATELYN DAWSON APRN) Radiology/Procedures: Radiology/Procedures: [] (KATELYN DAWSON APRN) Heart Score: C/O Chest Pain: N/A Risk Factors: Risk Factors: DM, Current or recent (<one month) smoker, HTN, HLP, family history of CAD, obesity. Risk Scores: Score 0 - 3: 2.5% MACE over next 6 weeks - Discharge Home Score 4 - 6: 20.3% MACE over next 6 weeks - Admit for Clinical Observation Score 7 - 10: 72.7% MACE over next 6 weeks - Early Invasive Strategies (KATELYN DAWSON APRN) Course & Med Decision Making: Course & Med Decision Making Pertinent Labs and Imaging studies reviewed. (See chart for details) [] Patient presents to the emergency department for right lower back and hip pain. Patient has chronic pain in these areas. He denies any new injuries. He denies any cauda equina symptoms. Patient treated with pain management in the emergency department. He is advised to continue taking his medications as prescribed and follow-up with his primary care provider. I discussed with patient all findings and diagnostic testing as well as the need to follow-up with PCP for further evaluation and treatment or return to the ER if any new or worsening symptoms. Strict return precautions were also discussed at length. Patient voiced understanding and agreement with the plan. Patient is hemodynamically stable at the time of disposition. (KATELYN DAWSON APRN) Dragon Disclaimer: Dragon Disclaimer: This electronic medical record was generated, in whole or in part, using a voice recognition dictation system. (KATELYN DAWSON APRN) Departure Departure: Impression: Primary Impression: Chronic pain Qualified Codes: G89.29 - Other chronic pain Disposition: HOME / SELF CARE / HOMELESS Condition: GOOD Referrals: SATISH GUEVARA MD (PCP) Patient Instructions: Chronic Back Pain Additional Instructions: You are seen in the emergency department for chronic pain. You were given pain medication in the emergency department. Please continue to take your medications that are prescribed by your primary care provider as directed. Follow-up with them if you require any additional pain management. Return to the emergency department if you develop worsening of your pain, loss of bowel or bladder, loss of sensation in your groin. Attending Signature Attending Signature I have participated in the care of this patient and I have reviewed and agree with all pertinent clinical information above including history, exam, and recommendations. (HARJINDER RIVERA MD) Dragon Disclaimer This chart was dictated in whole or in part using Voice Recognition software in a busy, high-work load, and often noisy Emergency Department environment. It may contain unintended and wholly unrecognized errors or omissions. (HARJINDER RIVERA MD) KATELYN DAWSON [employer] Sep 29, 2021 19:23 HARJINDER RIVERA MD Oct 02, 2021 20:25
[2021-09-29] MEDS ORDERED: MORPHINE SULFATE 4 MG/ML DISP.SYRIN. ONE (19:25)
[2021-09-29] MEDS ORDERED: MORPHINE SULFATE 4 MG/ML DISP.SYRIN. IM ONE (19:30)
== END 2021-09-29 19:31 | disposition home or self-care (01) ==
LOC: ER 18:53
DX: G89.29 Other chronic pain (principal); M54.59 Other low back pain; Z89.621 Acquired absence of right hip joint; Z90.49 Acquired absence of other specified parts of digestive tract; Z88.0 Allergy status to penicillin; Z88.8 Allergy status to other drugs, medicaments and biological substances
CPT/HCPCS: 96372; 99283; J2270

== ENCOUNTER 2021-10-06 14:03 | Emergency (ER) | payer MEDICARE ==
[~2021-10-06] VITALS: Ht 172.7 cm; Wt 90.9 kg
--- NOTE | 2021-10-06 14:20 | PHYS DOC ---
Past History Additional Past Medical Histor: PTSD Past Surgical History: Cholecystectomy Additional Past Surgical Histo: PAIN STIMULATOR, RIGHT LEG AMPUTATION Alcohol Use: None General Adult EDM: Chief Complaint: LOWER EXT PAIN HPI: HPI: Patient is a 71-year-old male presents with lower back pain and and right hip and stump pain. Patient was on a CT table today for a long period of time. He states he is having quite a bit of pain from having to lay still on the table. He has not had any other acute injury and has no other complaints other than the pain. Review of Systems: Review of Systems: Constitutional: Denies fever Eyes: Denies change in visual acuity or eye pain HENT: Denies sore throat Respiratory: Denies shortness of breath Cardiovascular: Denies chest pain GI: Denies abd pain : Denies dysuria Musculoskeletal: Denies back or extremity injury Integument: Denies rash or skin lesions Neurologic: Denies headache, focal weakness or sensory changes All other systems were reviewed and found to be within normal limits, except as documented in this note. Allergies: Allergies: Allergies Coded Allergies Type Severity Reaction Last Updated Verified Penicillins Allergy Unknown Swelling 09/08/21 Yes gabapentin Allergy Unknown Swelling 09/08/21 Yes Physical Exam: PE: Constitutional: Well developed, well nourished, no acute distress, non-toxic appearance. HENT: Normocephalic, atraumatic, bilateral external ears normal, mucosa moist, nose normal. Eyes: EOMI, conjunctiva normal, no discharge. Neck: Normal range of motion, supple, no stridor, no meningeal signs. Cardiovascular: Regular rate and rhythm Lungs & Thorax: Bilateral breath sounds clear to auscultation Abdomen: Soft, no tenderness or obvious masses Skin: Warm, dry, no erythema, no rash. Extremities: No tenderness, no cyanosis, no clubbing, ROM intact, no edema right [id number] amputation. Neurologic: Alert and oriented, normal motor function, normal sensory function, no focal deficits noted. Psychologic: Affect normal, judgement normal, mood normal. EKG: EKG: [] Radiology/Procedures: Radiology/Procedures: [] Heart Score: C/O Chest Pain: No Risk Factors: Risk Factors: DM, Current or recent (<one month) smoker, HTN, HLP, family history of CAD, obesity. Risk Scores: Score 0 - 3: 2.5% MACE over next 6 weeks - Discharge Home Score 4 - 6: 20.3% MACE over next 6 weeks - Admit for Clinical Observation Score 7 - 10: 72.7% MACE over next 6 weeks - Early Invasive Strategies Course & Med Decision Making: Course & Med Decision Making Pertinent Labs and Imaging studies reviewed. (See chart for details) [] Is a 71-year-old male complains of pain after laying on the CT table. He was given 8 of morphine IM, he is stable for discharge. Dragon Disclaimer: Dragon Disclaimer: This electronic medical record was generated, in whole or in part, using a voice recognition dictation system. Departure Departure: Impression: Primary Impression: Pain management Disposition: HOME / SELF CARE / HOMELESS Condition: STABLE Referrals: SATISH GUEVARA MD (PCP) Patient Instructions: Back Pain, Adult, Chronic Pain Management EMELY AMARAL MD Oct 06, 2021 14:20
[2021-10-06 14:50] VITALS: BP 119/93
[2021-10-06] MEDS ORDERED: MORPHINE SULFATE 4 MG/ML DISP.SYRIN. IM ONE (15:00)
== END 2021-10-06 14:50 | disposition home or self-care (01) ==
LOC: ER 14:03
DX: M54.59 Other low back pain (principal); M25.551 Pain in right hip; Z89.611 Acquired absence of right leg above knee; Z88.0 Allergy status to penicillin; Z88.8 Allergy status to other drugs, medicaments and biological substances
CPT/HCPCS: 96372; 99283; J2270

== ENCOUNTER 2021-10-14 19:54 | Emergency (ER) | payer MEDICARE, OTHER ==
[~2021-10-14] VITALS: Ht 172.7 cm; Wt 97.1 kg
[2021-10-14] MEDS ORDERED: MORPHINE SULFATE 10 MG/ML SYRINGE. IM ONE (20:15)
--- NOTE | 2021-10-14 20:47 | PHYS DOC ---
Past History Additional Past Medical Histor: PTSD, chronic back pain Past Surgical History: Cholecystectomy, Other Additional Past Surgical Histo: PAIN STIMULATOR, RIGHT LEG AMPUTATION Alcohol Use: None General Adult EDM: Chief Complaint: BACK PAIN OR INJURY HPI: HPI: 71-year-old male presents to the emergency room with breakthrough pain of his chronic pain. Patient is on fentanyl patches and pain pills. He states that occasionally he gets these pain breakthroughs with some electrical/shooting type sensation in his right hip that the home medications do not adequately treat. He has come to the emergency room for an intramuscular pain shot. Usually 1 dose is enough and it calms down. The patient is on pregabalin. He has been taking his medications as prescribed. He follows up with pain management at . He has a stimulator but it does not control this type of pain either. He has no new injuries or trauma. Review of Systems: Review of Systems: Constitutional: Denies fever or chills Eyes: Denies change in visual acuity HENT: Denies nasal congestion or sore throat Respiratory: Denies cough or shortness of breath Cardiovascular: Denies chest pain or edema GI: Denies abdominal pain, nausea, vomiting, bloody stools or diarrhea : Denies dysuria Musculoskeletal: Right hip pain Integument: Denies rash Neurologic: Denies headache, focal weakness or sensory changes Endocrine: Denies polyuria or polydipsia Lymphatic: Denies swollen glands Psychiatric: Denies depression or anxiety Current Medications: Current Meds: Current Medications Medications (Trade) Dose Ordered Sig/Jenny Start Time Stop Time Status Last Admin Dose Admin Morphine Sulfate (Morphine 10mg Syringe) 10 mg 1X ONCE 10/14/21 20:15 10/14/21 20:16 DC 10/14/21 20:24 10 MG Allergies: Allergies: Allergies Coded Allergies Type Severity Reaction Last Updated Verified Penicillins Allergy Unknown Swelling 09/08/21 Yes gabapentin Allergy Unknown Swelling 09/08/21 Yes Physical Exam: PE: Constitutional: Well developed, well nourished, obese, no acute distress, non- toxic appearance. [] HENT: Normocephalic, atraumatic, bilateral external ears normal, oropharynx moist, no oral exudates, nose normal. [] Eyes: PERRLA, EOMI, conjunctiva normal, no discharge. [] Neck: Normal range of motion, no tenderness, supple, no stridor. [] Cardiovascular: Heart rate regular rhythm, no murmur [] Lungs & Thorax: Bilateral breath sounds clear to auscultation [] Abdomen: Bowel sounds normal, soft, no tenderness, no masses, no pulsatile masses. [] Skin: Warm, dry, no erythema, no rash. [] Back: No tenderness, no CVA tenderness. [] Extremities: Amputation of the entire right leg [] Neurologic: Alert and oriented X 3, normal motor function, normal sensory function, no focal deficits noted. [] Psychologic: Affect normal, judgement normal, mood normal. [] Current Patient Data: Vital Signs: Vital Signs Date Time Temp Pulse Resp B/P (MAP) Pulse Ox O2 Delivery O2 Flow Rate FiO2 10/14/21 20:24 18 92 Room Air 10/14/21 20:00 97.6 96 142/74 (96) EKG: EKG: [] Radiology/Procedures: Radiology/Procedures: [] Heart Score: C/O Chest Pain: N/A Risk Factors: Risk Factors: DM, Current or recent (<one month) smoker, HTN, HLP, family history of CAD, obesity. Risk Scores: Score 0 - 3: 2.5% MACE over next 6 weeks - Discharge Home Score 4 - 6: 20.3% MACE over next 6 weeks - Admit for Clinical Observation Score 7 - 10: 72.7% MACE over next 6 weeks - Early Invasive Strategies Course & Med Decision Making: Course & Med Decision Making Pertinent Labs and Imaging studies reviewed. (See chart for details) I we will give the patient 10 mg of morphine IM. He already has substantial pain medication for home. He understands I cannot send him any further prescriptions. He will follow-up with his doctors as previously planned. He is stable for discharge at this time. [] Dragon Disclaimer: Dragon Disclaimer: This electronic medical record was generated, in whole or in part, using a voice recognition dictation system. Departure Departure: Impression: Primary Impression: Chronic pain Disposition: HOME / SELF CARE / HOMELESS Condition: STABLE Referrals: SATISH GUEVARA MD (PCP) Patient Instructions: Chronic Pain Management-Brief SANTINO DAVIDSON DO October 14, 2021 20:47
[2021-10-14 20:57] VITALS: BP 147/78
[2021-10-15] MEDS ORDERED: HYDR25TA10 PO (13:09)
[2021-10-15] MEDS ORDERED: ASPI81TA59 PO (13:09)
[2021-10-15] MEDS ORDERED: CLON0.5T4 PO (13:09)
[2021-10-15] MEDS ORDERED: NICO4GUM5 BC (13:09)
[2021-10-15] MEDS ORDERED: TIZA-75 PO ×2 (13:09)
[2021-10-15] MEDS ORDERED: VENL75TA PO (13:09)
[2021-10-15] MEDS ORDERED: TAMS0.4C97 PO (13:09)
[2021-10-15] MEDS ORDERED: PRAZ2CAP2 PO (13:09)
[2021-10-15] MEDS ORDERED: METF10007 PO (13:09)
[2021-10-15] MEDS ORDERED: FENT1PAT21 TP (13:09)
[2021-10-15] MEDS ORDERED: FENT-73 TD (13:09)
[2021-10-15] MEDS ORDERED: DOXE50CA PO (13:09)
[2021-10-15] MEDS ORDERED: ALLO100T PO (13:09)
[2021-10-15] MEDS ORDERED: DOCU100C28 PO (13:09)
[2021-10-15] MEDS ORDERED: OMEG1CAP50 PO (13:09)
[2021-10-15] MEDS ORDERED: CRESTOR20 MG PO (13:09)
[2021-10-15] MEDS ORDERED: PREG150C PO (13:09)
[2021-10-15] MEDS ORDERED: AMLO-187 PO (13:09)
[2021-10-15] MEDS ORDERED: LISI40TA6 PO (13:09)
[2021-10-15] MEDS ORDERED: CHOL10004 PO (13:30)
[2021-10-15] MEDS ORDERED: VITA1TAB19 PO (13:30)
[2021-10-15] MEDS ORDERED: FERR325T14 PO (13:30)
[2021-10-17] MEDS ORDERED: HYDR2TAB31 PO ×2 (12:36→12:42)
[2021-10-17] MEDS ORDERED: PREG150C PO ×2 (12:36→12:42)
[2021-10-17] MEDS ORDERED: FENT1PAT15 TP ×2 (12:36→12:42)
== END 2021-10-14 21:00 | disposition home or self-care (01) ==
LOC: ER 19:54
DX: G89.29 Other chronic pain (principal); Z88.0 Allergy status to penicillin; Z88.8 Allergy status to other drugs, medicaments and biological substances
CPT/HCPCS: 96372; 99283; J2270

== ENCOUNTER 2021-10-15 02:20 | Inpatient (IN) | payer MEDICARE ==
[~2021-10-15] VITALS: Ht 172.7 cm; Wt 95.5 kg
[2021-10-15] MEDS ORDERED: HYDROmorphone PF 1 MG/ML DISP.SYRIN IV PRN (03:00)
[2021-10-15] MEDS ORDERED: ONDANSETRON PF 4 MG/2 ML VIAL. IVP PRN (03:00)
--- NOTE | 2021-10-15 03:16 | PHYS DOC ---
Past History Additional Past Medical Histor: PTSD, chronic back pain Past Surgical History: Cholecystectomy, Other Additional Past Surgical Histo: PAIN STIMULATOR, RIGHT LEG AMPUTATION Alcohol Use: None General Adult EDM: Chief Complaint: HIP PAIN HPI: HPI: 71-year-old male returns the emergency room via EMS with continued right hip pain. The patient was just seen by myself in this ER a couple of hours ago. He was given breakthrough pain medication and discharge. He returns with continued pain. There is no change to his history or status since his previous visit. Review of Systems: Review of Systems: Constitutional: Denies fever or chills Eyes: Denies change in visual acuity HENT: Denies nasal congestion or sore throat Respiratory: Denies cough or shortness of breath Cardiovascular: Denies chest pain or edema GI: Denies abdominal pain, nausea, vomiting, bloody stools or diarrhea : Denies dysuria Musculoskeletal: Right hip pain Integument: Denies rash Neurologic: Denies headache, focal weakness or sensory changes Endocrine: Denies polyuria or polydipsia Lymphatic: Denies swollen glands Psychiatric: Denies depression or anxiety Current Medications: Current Meds: Current Medications Medications (Trade) Dose Ordered Sig/Jenny Start Time Stop Time Status Last Admin Dose Admin Hydromorphone HCl (Dilaudid) 1 mg PRN Q2HR PRN 10/15/21 03:00 10/16/21 02:59 Ondansetron HCl (Zofran) 4 mg PRN Q4HRS PRN 10/15/21 03:00 10/16/21 02:59 Allergies: Allergies: Allergies Coded Allergies Type Severity Reaction Last Updated Verified Penicillins Allergy Unknown Swelling 09/08/21 Yes gabapentin Allergy Unknown Swelling 09/08/21 Yes Physical Exam: PE: Constitutional: Well developed, well nourished, obese, no acute distress, non- toxic appearance. [] HENT: Normocephalic, atraumatic, bilateral external ears normal, oropharynx moist, no oral exudates, nose normal. [] Eyes: PERRLA, EOMI, conjunctiva normal, no discharge. [] Neck: Normal range of motion, no tenderness, supple, no stridor. [] Cardiovascular: Heart rate regular rhythm, no murmur [] Lungs & Thorax: Bilateral breath sounds clear to auscultation [] Abdomen: Bowel sounds normal, soft, no tenderness, no masses, no pulsatile masses. [] Skin: Warm, dry, no erythema, no rash. [] Back: No tenderness, no CVA tenderness. [] Extremities: Amputation entire right lower extremity [] Neurologic: Alert and oriented X 3, normal motor function, normal sensory function, no focal deficits noted. [] Psychologic: Affect normal, judgement normal, mood normal. [] Current Patient Data: Vital Signs: Vital Signs Date Time Temp Pulse Resp B/P (MAP) Pulse Ox O2 Delivery O2 Flow Rate FiO2 10/15/21 02:20 98.2 95 18 142/86 (104) 93 Room Air EKG: EKG: [] Radiology/Procedures: Radiology/Procedures: [] Heart Score: C/O Chest Pain: N/A Risk Factors: Risk Factors: DM, Current or recent (<one month) smoker, HTN, HLP, family history of CAD, obesity. Risk Scores: Score 0 - 3: 2.5% MACE over next 6 weeks - Discharge Home Score 4 - 6: 20.3% MACE over next 6 weeks - Admit for Clinical Observation Score 7 - 10: 72.7% MACE over next 6 weeks - Early Invasive Strategies Course & Med Decision Making: Course & Med Decision Making Pertinent Labs and Imaging studies reviewed. (See chart for details) I spoke with Dr. Rai and he has agreed to admit the patient for pain management. He has requested CT of the lumbar spine. I have also given the patient pain medication prior to admission. The patient is in agreement with admission. [] Dragon Disclaimer: Dragon Disclaimer: This electronic medical record was generated, in whole or in part, using a voice recognition dictation system. Departure Departure: Impression: Primary Impression: Chronic pain Disposition: ADMITTED INPATIENT Admitting Physician: Consuelo Rai Condition: STABLE Referrals: SATISH GUEVARA MD (PCP) SANTINO DAVIDSON DO October 15, 2021 03:16
[2021-10-15] MEDS ORDERED: ONDANSETRON PF 4 MG/2 ML VIAL. IVP ONE (03:30)
[2021-10-15] MEDS ORDERED: HYDROmorphone PF 1 MG/ML DISP.SYRIN IVP ONE (03:30)
--- NOTE | 2021-10-15 04:07 | RAD ---
[employer] Compliance Statement: One or more of the following individualized dose reduction techniques were utilized for this examinat ion: 1. Automated exposure control 2. Adjustment of the mA and/or kV according to patient size 3. Use of iterative reconstruction technique CT LUMBAR SPINE WO Clinical Indication: Reason: low back/hip pain / Spl. Instructions: please include hip area / History : Comparison: CT abdomen and pelvis without contrast, September 08, 2021. The TECHNIQUE: Helical CT imaging of the lumbar spine is performed without IV contrast. Findings: There is no acute fracture or subluxation of the lumbar spine. No disc space narrowing is seen. There is faint vacuum disc phenomenon of L4/L5. A spinal stimulator is redemonstrated, interest the canal at the level of L1/L2. The right sacroiliac joint is partially fused. Question whether there are juan enitally short pedicles. L3/L4: There is a small broad-based posterior disc bulge and ligamentum flavum redundancy. There is p robably mild to moderate central canal stenosis. The neural foramina are adequate. L4/L5: L4/L5: Facet joints are hypertrophic, there is air in the bilateral facet joints. There is mil d left and no significant right neural foraminal narrowing. The central canal is adequate. There is m inimal posterior disc bulge. There are diverticula of the sigmoid colon. Atherosclerotic abdominal aorta. There is a hyperdense le alex of the right kidney again noted measuring 2.8 cm. Kidneys are incompletely imaged. There is prob ably fatty infiltration of the liver. IMPRESSION: 1. There is no acute fracture or subluxation of the lumbar spine. 2. There is no high-grade central canal stenosis or neural foraminal narrowing. Electronically signed by: Sonu Valderrama MD (10/15/2021 4:05 AM) [facility]
--- NOTE | 2021-10-15 05:04 | NUR ---
The patient, JUANITA MCLAIN, 71 y/o, M admitted by INES NIXON MD, was given written information regarding hospital policies, unit procedures and contact persons. Valuables were checked and logged. Call light at bedside.
[2021-10-15 05:15] VITALS: BP 162/92
[2021-10-15] MEDS: HYDROmorphone PF 2 MG/ML VIAL IVP PRN ×4 (05:32→21:11)
[2021-10-15 10:50] LABS: HEMOGLOBIN 12.1 g/dL (13.0-17.5); RED BLOOD COUNT 4.03 x10^6/uL (4.30-5.70); RED CELL DISTRIBUTION WIDTH 15.7 % (11.5-14.5); WHITE BLOOD COUNT 6.3 x10^3/uL (4.0-11.0)
[2021-10-15 11:00] VITALS: BP 161/66
[2021-10-15 11:02] LABS: CREATININE 1.2 mg/dL (0.7-1.3); GFR 59.5
--- NOTE | 2021-10-15 11:04 | HP ---
DATE OF SERVICE: 10/15/2021 ADMIT DATE: 10/15/2021 HISTORY OF PRESENT ILLNESS: The patient is a 71-year-old male patient who presented to the Emergency Room for severe right hip pain that shoots from his lower back. Apparently, he was seen yesterday in the Emergency Room for breakthrough pain, was given IV pain medication and was sent home only to come back again. With continued with severe pain, there is no change to his history and status since his previous visit and was evaluated with lab work and imaging studies and was admitted for further evaluation and treatment. He was given hydromorphone 1 mg every 2 hours. It was increased to 2 mg together with ondansetron and was admitted for further evaluation and treatment. 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 He was seen by the pain management clinic at [facility] where he gets what seemed to be spinal epidural steroid injection every 6 months. He has also a nerve stimulator to control the pain. Other medical problems include hypertension, type 2 diabetes mellitus, hyperlipidemia, has had bladder cancer for which he underwent 4 surgeries to resect the bladder cancer and he has also chronic back pain. PAST SURGICAL HISTORY: Right lower extremity amputation with disarticulation of the right hip joint. He had bladder tumor resection x3, bilateral carpal tunnel release, cholecystectomy, left total hip arthroplasty. ALLERGIES: HE IS ALLERGIC TO PENICILLIN AND GABAPENTIN. MEDICATIONS: He is currently on pain medication including fentanyl patch 125 mcg topically q. 72 hours. He is on oxycodone 5 mg twice a day. He is also on Lyrica 150 mg twice a day. The list of medication is still not available. FAMILY HISTORY: He has 1 older sister and 1 younger sister, both healthy. Both parents are . SOCIAL HISTORY: He is , has 2 sons. He never smoked, does not drink alcohol or recreational drugs, although he is on Nicoderm patch. He is a schaeffer. 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 He is currently on disability. REVIEW OF SYSTEMS: As per history of present illness. PHYSICAL EXAMINATION: GENERAL: On arrival to the Emergency Room, the patient looked well and was clearly in no apparent respiratory distress. No pallor, jaundice, cyanosis or thyromegaly. No jugular venous distention. No limb edema. VITAL SIGNS: Her heart rate was 84, blood pressure was 126/55, temperature was 97.5, respiratory rate was 20 and oxygen saturation was 93% on 2 liters of oxygen. HEAD, EYES, EARS, NOSE, AND THROAT: Normocephalic, atraumatic. NECK: Supple. HEART: Showed normal first and second heart sounds. No gallop or murmur. CHEST: Clear to auscultation. No crepitation or rhonchi. ABDOMEN: Distended, soft, nontender. NEUROLOGIC: He was awake, alert, responding appropriately. All cranial nerves intact. He moves extremities without difficulty. He is mostly wheelchair bound. LABORATORY DATA: He has no lab work done. His most recent lab work available showed a white cell count of 6.6, hemoglobin 13, hematocrit 39, MCV 90 and platelet count 209,000 with normal manual differential. His chemistry showed a serum sodium 136, potassium 4, chloride 104, bicarbonate 26, anion gap of 6, BUN 22, creatinine 1.1. Estimated GFR was 65 mL per minute. His glucose 142, calcium was 9.4. Total bilirubin, AST, ALT, alkaline phosphatase were normal. Total protein 7, albumin was 3.3, serum lipase 114. All this lab work done on 09/08/2021. As of this morning, we did a CT scan of the lumbar spine, which showed that there is no acute fracture or subluxation of the lumbar spine. No disk space narrowing is seen. There is faint vacuum disk phenomenon of L4-L5. A spinal stimulator is redemonstrated entering the canal at the level of L1-L2. The right sacroiliac joint is partially fused, questions whether there are congenitally short pedicles. At L3-L4, there is a small broad-based posterior disk bulge and ligamentum flavum redundancy. There is probably [id number] central canal stenosis and neural foramina are adequate L4-L5 facet joints are hypertrophic. There is air in the bilateral facet joints. There is mild left and no significant right neural foraminal narrowing. The central canal is adequate. There is minimal posterior disk bulge. There are diverticula of the sigmoid colon and atherosclerotic abdominal aorta. There is a hyperdense lesion in the right kidney again noted measuring 2.8 cm that is incompletely imaged. There is probably fatty infiltration of the liver with the impression that there is no acute fracture or subluxation of the lumbar spine. There is no high-grade central canal stenosis or neural foraminal rowing. ASSESSMENT: In summary, the patient came with severe intractable right lower lumbar pain that radiates to his right hip joint. The patient has a history of bladder cancer. He also stated that he was at [facility] and had what seemed to be a CT scan of the chest for possible cancer in has lung. The CT scan of the lumbar spine showed that there is air in the bilateral facet joints, which I am not sure what that means. PLAN: My plan is to repeat his labs including sed rate and CRP. I will arrange for him to have a bone scan and x-ray of his right hip joint and also x-ray of the chest and will continue with all his lab work. I will increase his Lyrica to 150 mg 3 times a day and will decide on further management accordingly. SHIVANI/HUMERA DR: Kale TID: [id number]
[2021-10-15 11:10] LABS: ALBUMIN 3.2 g/dL (3.4-5.0); ALBUMIN/GLOBULIN RATIO 0.9 (1.0-1.7); C REACTIVE PROTEIN 8.6 mg/L (0-3.3); TOTAL BILIRUBIN 0.2 mg/dL (0.2-1.0); TOTAL PROTEIN 6.8 g/dL (6.4-8.2)
[2021-10-15] MEDS ORDERED: FENT-73 TD (13:09)
[2021-10-15] MEDS ORDERED: NICO4GUM5 BC (13:09)
[2021-10-15] MEDS ORDERED: VENL75TA PO (13:09)
[2021-10-15] MEDS ORDERED: OMEG1CAP50 PO (13:09)
[2021-10-15] MEDS ORDERED: CLON0.5T4 PO (13:09)
[2021-10-15] MEDS ORDERED: ALLO100T PO (13:09)
[2021-10-15] MEDS ORDERED: ASPI81TA59 PO (13:09)
[2021-10-15] MEDS ORDERED: TAMS0.4C97 PO (13:09)
[2021-10-15] MEDS ORDERED: DOXE50CA PO (13:09)
[2021-10-15] MEDS ORDERED: LISI40TA6 PO (13:09)
[2021-10-15] MEDS ORDERED: METF10007 PO (13:09)
[2021-10-15] MEDS ORDERED: AMLO-187 PO (13:09)
[2021-10-15] MEDS ORDERED: DOCU100C28 PO (13:09)
[2021-10-15] MEDS ORDERED: HYDR25TA10 PO (13:09)
[2021-10-15] MEDS ORDERED: FENT1PAT21 TP (13:09)
[2021-10-15] MEDS ORDERED: TIZA-75 PO ×2 (13:09)
[2021-10-15] MEDS ORDERED: CRESTOR20 MG PO (13:09)
[2021-10-15] MEDS ORDERED: PRAZ2CAP2 PO (13:09)
[2021-10-15] MEDS ORDERED: PREG150C PO (13:09)
[2021-10-15] MEDS ORDERED: tiZANidine 4 MG TABLET. PO PRN (13:15)
[2021-10-15] MEDS ORDERED: VITA1TAB19 PO (13:30)
[2021-10-15] MEDS ORDERED: FERR325T14 PO (13:30)
[2021-10-15] MEDS ORDERED: CHOL10004 PO (13:30)
[2021-10-15] MEDS ORDERED: NICOTINE POLACRILEX GUM 2 MG GUM. BC PRN (13:45)
[2021-10-15] MEDS ORDERED: NON FORMULARY ITEM (Cephalexin (Keflex) 1 CAP) PO SCH (14:00)
[2021-10-15 15:00] VITALS: BP_SYST 140; BP_DIAS 71; BP_DIAS 83
[2021-10-15] MEDS: metFORMIN 500 MG TABLET PO SCH (17:00)
[2021-10-15 19:00] VITALS: BP 153/82
[2021-10-15 20:23] VITALS: BP 106/63
[2021-10-15] MEDS: TAMSULOSIN 0.4 MG CAP.ER.24H. PO SCH (20:25)
[2021-10-15] MEDS: PREGABALIN 75 MG CAPSULE PO SCH (20:26)
[2021-10-15] MEDS: oxyCODONE IR 5 MG TABLET PO PRN (20:26)
[2021-10-15] MEDS: ATORVASTATIN CALCIUM 20 MG TABLET PO SCH (20:26)
[2021-10-15] MEDS: clonazePAM 0.5 MG TABLET PO SCH (20:27)
[2021-10-15] MEDS: DOCUSATE SODIUM 100 MG CAPSULE PO SCH (20:27)
[2021-10-15] MEDS: DOXEPIN HCL 25 MG CAPSULE PO SCH (20:27)
[2021-10-15] MEDS: PRAZOSIN 1 MG CAPSULE. PO SCH (20:28)
[2021-10-15] MEDS: VENLAFAXINE 75 MG TABLET. PO SCH (20:30)
[2021-10-15] MEDS: tiZANidine 4 MG TABLET. PO SCH (20:30)
[2021-10-15] MEDS ORDERED: PREGABALIN 75 MG CAPSULE PO SCH (21:00)
[2021-10-16] MEDS: HYDROmorphone PF 2 MG/ML VIAL IVP PRN (04:26)
[2021-10-16 05:51] VITALS: BP 169/95
[2021-10-16] MEDS: hydroCHLOROthiazide 25 MG TABLET. PO SCH (07:52)
[2021-10-16] MEDS: VENLAFAXINE 75 MG TABLET. PO SCH ×2 (07:52→21:50)
[2021-10-16] MEDS: metFORMIN 500 MG TABLET PO SCH ×3 (07:52→18:31)
[2021-10-16] MEDS: amLODIPine BESYLATE 10 MG TABLET PO SCH (07:53)
[2021-10-16] MEDS: DOCUSATE SODIUM 100 MG CAPSULE PO SCH ×2 (07:53→21:50)
[2021-10-16] MEDS: ALLOPURINOL 100 MG TABLET. PO SCH (07:53)
[2021-10-16] MEDS: OMEGA-3 FATTY ACIDS/FISH OIL 1,000 MG CAPSULE. PO SCH (07:53)
[2021-10-16] MEDS: TAMSULOSIN 0.4 MG CAP.ER.24H. PO SCH ×2 (07:53→21:48)
[2021-10-16] MEDS: PREGABALIN 75 MG CAPSULE PO SCH ×5 (07:54→21:00)
[2021-10-16] MEDS: clonazePAM 0.5 MG TABLET PO SCH ×2 (07:54→21:48)
[2021-10-16] MEDS: LISINOPRIL 20 MG TABLET PO SCH (07:54)
[2021-10-16] MEDS: ASPIRIN CHEWABLE 81 MG TABLET. PO SCH (07:54)
[2021-10-16] MEDS: LIDOCAINE (700MG/PATCH) PATCH. TP SCH ×2 (07:58→17:20)
[2021-10-16] MEDS ORDERED: AZITHROMYCIN 250 MG TABLET. PO SCH (09:00)
[2021-10-16] MEDS ORDERED: fentaNYL 25MCG/HR 1 PATCH PATCH TD SCH (09:00)
[2021-10-16] MEDS ORDERED: levoFLOXacin 750 MG TABLET PO SCH (09:00)
[2021-10-16 10:51] VITALS: BP 108/62
[2021-10-16] MEDS ORDERED: HYDROmorphone PF 2 MG/ML VIAL IVP PRN (11:45)
[2021-10-16] MEDS ORDERED: fentaNYL 100MCG/HR 1 PATCH PATCH TD SCH (13:30)
[2021-10-16 14:46] VITALS: BP 123/69
--- NOTE | 2021-10-16 15:41 | RAD ---
EXAM: Nuclear bone scan. HISTORY: Metastatic disease or osteomyelitis. COMPARISON: CT dated 09/08/2021. TECHNIQUE: Following the intravenous injection of mCi of Tc 99m labeled methylene diphosphonate (MDP) , whole body imaging was performed. FINDINGS: There is photopenia involving the left hip due to a hip arthroplasty. The right lower extre mity is surgically absent. There is increased radiotracer activity involving the left knee, ankle, mi dfoot and first metatarsophalangeal joint, the distribution of which favors a degenerative etiology. There is also suspected degenerative radiotracer activity involving both shoulders and sternoclavicul ar joints and both wrists and hands. There is heterogeneous activity involving the calvarium, likely physiologic given the absence of a suspicious finding on the CT performed 10/07/2021. There is degener ative activity involving the lumbosacral junction. IMPRESSION: 1. No convincing radiotracer activity to suggest osseous metastatic disease or osteomyelitis. 2. Multifocal areas of radiotracer activity within the axial and appendicular skeleton, the distribut ion of which favors a degenerative etiology. This is most significant involving the left knee, bilate ral shoulders and sternoclavicular joints. Dedicated radiographs of these locations may be useful. 3. Surgically absent right lower extremity and left hip arthroplasty. Electronically signed by: Marta Merino MD (10/16/2021 3:38 PM) [id number]
[2021-10-16 18:09] LABS: BGAS PH 7.33 (7.35-7.46)
--- NOTE | 2021-10-16 18:29 | NUR ---
pt has slept most of the day, with one dose of hydromorphone given in the am. fentanyl patches per order and one dose of oxycodone. pt will arouse to touch, but falls asleep quickly. dr. lacy notified and orders to hold off on pain meds until pt is able to stay awake for longer periods of time and able to express his needs. pt will be placed on a cpap at hs due to increased C02. Dr. Lacy notified.
[2021-10-16 19:57] VITALS: BP 153/74
[2021-10-16] MEDS: tiZANidine 4 MG TABLET. PO SCH (21:48)
[2021-10-16] MEDS: ATORVASTATIN CALCIUM 20 MG TABLET PO SCH (21:48)
[2021-10-16] MEDS: PRAZOSIN 1 MG CAPSULE. PO SCH (21:49)
[2021-10-16] MEDS: DOXEPIN HCL 25 MG CAPSULE PO SCH (21:49)
[2021-10-16 23:36] VITALS: BP 144/72
--- NOTE | 2021-10-17 03:28 | PN ---
DATE: 10/16/2021 SUBJECTIVE: The patient is resting, slightly propped up in bed, in no apparent respiratory distress. He is actually sleeping and in fact snoring. I increased his Lyrica to 150 mg 3 times a day. He is on 125 mcg of fentanyl, oxycodone 5 mg twice a day, has been receiving hydromorphone that I cut down to be given every 6 hours. The patient continued to have this shooting pain. PHYSICAL EXAMINATION: GENERAL: When I examined him, he looked well and was clearly in no apparent respiratory distress. No pallor, jaundice, cyanosis or thyromegaly. No jugular venous distention. No limb edema. VITAL SIGNS: Her heart rate was 69, blood pressure is 123/69, temperature was 97, respiratory rate was 18 and oxygen saturation was 90% on 3 liters of oxygen. HEAD, EYES, EARS, NOSE, AND THROAT: Normocephalic, atraumatic. NECK: Supple. HEART: Showed normal first and second heart sounds. No gallop, rub or murmur. CHEST: Clear to auscultation. No crepitation or rhonchi. ABDOMEN: Distended, soft, nontender. NEUROLOGIC: He was very lethargic, but arousable. All his cranial nerves intact. He moves upper extremities without difficulty. His right lower extremity is amputated. DIAGNOSTIC DATA: His total body bone scan showed the patient has no convincing radiotracer activity to suggest osseous metastatic disease or osteomyelitis. He has multifocal areas of radiotracer activity within the axial and appendicular skeleton, the distribution of which favors a degenerative etiology. This is most significantly involving the left knee, bilateral shoulder and sternoclavicular joints. Surgically absent right lower extremity and left hip arthroplasty. PLAN: My plan is to continue with current pain management. We will try and taper down the hydromorphone further and he will be discharged home tomorrow. His has made an appointment for him with pain management clinic at [facility]. WING GARRISON: Kale TID: [id number]
[2021-10-17 05:25] VITALS: BP 126/73
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
[2021-10-17] MEDS: VENLAFAXINE 75 MG TABLET. PO SCH (08:13)
[2021-10-17] MEDS: ASPIRIN CHEWABLE 81 MG TABLET. PO SCH (08:13)
[2021-10-17] MEDS: TAMSULOSIN 0.4 MG CAP.ER.24H. PO SCH (08:13)
[2021-10-17] MEDS: DOCUSATE SODIUM 100 MG CAPSULE PO SCH (08:13)
[2021-10-17] MEDS: OMEGA-3 FATTY ACIDS/FISH OIL 1,000 MG CAPSULE. PO SCH (08:13)
[2021-10-17] MEDS: metFORMIN 500 MG TABLET PO SCH (08:14)
[2021-10-17] MEDS: LISINOPRIL 20 MG TABLET PO SCH (08:14)
[2021-10-17] MEDS: amLODIPine BESYLATE 10 MG TABLET PO SCH (08:14)
[2021-10-17] MEDS: ALLOPURINOL 100 MG TABLET. PO SCH (08:15)
[2021-10-17] MEDS: hydroCHLOROthiazide 25 MG TABLET. PO SCH (08:15)
[2021-10-17] MEDS: LIDOCAINE (700MG/PATCH) PATCH. TP SCH ×3 (08:16→09:00)
[2021-10-17] MEDS: oxyCODONE IR 5 MG TABLET PO PRN (08:53)
[2021-10-17] MEDS: PREGABALIN 75 MG CAPSULE PO SCH (09:00)
[2021-10-17] MEDS: clonazePAM 0.5 MG TABLET PO SCH (09:00)
[2021-10-17 10:57] VITALS: BP 149/74
[2021-10-17] MEDS ORDERED: HYDR2TAB31 PO ×2 (12:36→12:42)
[2021-10-17] MEDS ORDERED: FENT1PAT15 TP ×2 (12:36→12:42)
[2021-10-17] MEDS ORDERED: PREG150C PO ×2 (12:36→12:42)
--- NOTE | 2021-10-17 14:10 | NUR ---
PT discharged to home/self care at 1316, stable, in wheelchair, and accompanied by spouse. New prescriptions provided with education regarding pain medications (oral hydromorphone). Pt and spouse verbalized understanding of medications indications and side effects. Pt left with all belongings and instructions to follow-up with the pain management team at [facility] re: referral from Dr. Rai for 10/25/21. Pt expressed that the pain mgmt team had already contacted him before discharge from [facility].
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
== END 2021-10-17 13:16 | disposition home or self-care (01) | DRG 74 ==
LOC: ER 02:20 → ER HOLD 03:11 → 1 SOUTH 04:34
PROVIDERS: ADMIT Internal Medicine; ATTEND Internal Medicine
DX: G54.6 Phantom limb syndrome with pain (principal); C34.90 Malignant neoplasm of unspecified part of unspecified bronchus or lung; E11.9 Type 2 diabetes mellitus without complications; E78.5 Hyperlipidemia, unspecified; F43.10 Post-traumatic stress disorder, unspecified; G89.29 Other chronic pain; I10 Essential (primary) hypertension; Z85.51 Personal history of malignant neoplasm of bladder; Z96.642 Presence of left artificial hip joint; Z20.822 Contact with and (suspected) exposure to COVID-19; Z88.0 Allergy status to penicillin; Z88.8 Allergy status to other drugs, medicaments and biological substances; Z90.49 Acquired absence of other specified parts of digestive tract; Z79.899 Other long term (current) drug therapy
CPT/HCPCS: 36415; 36600; 72131; 78306; 80053; 82803; 82947; 84145; 85027; 85651; 86140; 87426; 94660; 96372; 96374; 96375; 99283; A9503; J1170; J2270; J2405; U0003; 99285-25

== ENCOUNTER 2021-10-27 15:07 | Emergency (ER) | payer MEDICARE, BC ==
[~2021-10-27] VITALS: Ht 172.7 cm; Wt 90.9 kg
[~2021-10-27 15:07] MED LIST changes: +ALLO100T PO; +AMLO-187 PO; +ASPI81TA59 PO; +CHOL10004 PO; +CLON0.5T4 PO; +CRESTOR20 MG PO; +DOCU100C28 PO; +DOXE50CA PO; +FENT-73 TD; +FENT1PAT15 TP; +FENT1PAT21 TP; +FERR325T14 PO; +HYDR25TA10 PO; +HYDR2TAB31 PO; +LISI40TA6 PO; +METF10007 PO; +NICO4GUM5 BC; +OMEG1CAP50 PO; +PRAZ2CAP2 PO; +PREG150C PO; +TAMS0.4C97 PO; +TIZA-75 PO; +VENL75TA PO; +VITA1TAB19 PO
[2021-10-27 15:35] VITALS: BP 150/84
--- NOTE | 2021-10-27 15:52 | PHYS DOC ---
Past History Additional Past Medical Histor: PTSD (KATELYN DAWSON APRN) Past Surgical History: Cholecystectomy Additional Past Surgical Histo: PAIN STIMULATOR, RIGHT LEG AMPUTATION (KATELYN DAWSON APRN) Alcohol Use: None (KATELYN DAWSON APRN) General Adult EDM: Chief Complaint: HIP PAIN HPI: HPI: Patient is a 71-year-old male who presents to the emergency department for right hip pain. Patient reports that he has chronic right back pain and has disc problems at his L5. He reports that the pain is sharp and shooting and radiates into his leg. He has a right AKA. He rates his pain 8 out of 10. No treatment prior to arrival. Patient denies any injury, saddle anesthesias, loss of bowel or bladder, urinary complaints. (KATELYN DAWSON APRN) Review of Systems: Review of Systems: GI: See HPI : See HPI Musculoskeletal: See HPI Integument: See HPI Neurologic: See HPI (KATELYN DAWSON APRN) Current Medications: Current Meds: Current Medications Medications (Trade) Dose Ordered Sig/Jenny Start Time Stop Time Status Last Admin Dose Admin Acetaminophen/ Hydrocodone Bitart (Lortab 5/325) 1 tab 1X ONCE 10/27/21 16:00 10/27/21 16:01 UNV Orphenadrine Citrate (Norflex) 60 mg 1X ONCE 10/27/21 16:00 10/27/21 16:01 UNV (KATELYN DAWSON APRN) Allergies: Allergies: Allergies Coded Allergies Type Severity Reaction Last Updated Verified Penicillins Allergy Unknown 10/07/21 Yes gabapentin Allergy Unknown 10/07/21 Yes (KATELYN DAWSON APRN) Physical Exam: PE: Constitutional: Well developed, well nourished, no acute distress, non-toxic appearance. [] HENT: Normocephalic, atraumatic, bilateral external ears normal, oropharynx moist, no oral exudates, nose normal. [] Eyes: PERRL, EOMI, conjunctiva normal, no discharge. [] Neck: Normal range of motion, no tenderness, supple, no stridor. [] Cardiovascular:Heart rate regular rhythm, no murmur [] Lungs & Thorax: Bilateral breath sounds clear to auscultation [] Abdomen: Bowel sounds normal, soft, no tenderness, no masses, no pulsatile masses. [] Skin: Warm, dry, no erythema, no rash. [] Back: No bony spinal tenderness, no CVA tenderness. [] Extremities: No tenderness, no cyanosis, no clubbing, ROM intact, no edema. [] Right AKA Neurologic: Alert and oriented X 3, normal motor function, normal sensory function, no focal deficits noted. [] Psychologic: Affect normal, judgement normal, mood normal. [] (KATELYN DAWSON APRN) EKG: EKG: [] (KATELYN DAWSON APRN) Radiology/Procedures: Radiology/Procedures: Laboratory Tests Test 10/27/21 15:55 Urine Collection Type Clean catch Urine Color Yellow Urine Clarity Clear Urine pH 5.5 Urine Specific [place] >=1.030 Urine Protein 100 mg/dl Urine Glucose (UA) Neg mg/dL Urine Ketones (Stick) Neg mg/dL Urine Blood Neg Urine Nitrite Neg Urine Bilirubin Neg Urine Urobilinogen Dipstick 0.2 mg/dL Urine Leukocyte Esterase Neg Urine RBC Occ /HPF Urine WBC 20-40 /HPF Urine Squamous Epithelial Cells Occ /LPF Urine Bacteria 0 /HPF Urine Hyaline Casts Occ /HPF Urine Mucus Mod /LPF Current Medications Medications (Trade) Dose Ordered Sig/Jenny Route PRN Reason Start Time Stop Time Status Last Admin Dose Admin Acetaminophen/ Hydrocodone Bitart (Lortab 5/325) 1 tab 1X ONCE PO 10/27/21 16:00 10/27/21 16:01 DC 10/27/21 16:13 Orphenadrine Citrate (Norflex) 60 mg 1X ONCE IM 10/27/21 16:00 10/27/21 16:01 DC 10/27/21 16:14 [] (KATELYN DAWSON APRN) Heart Score: C/O Chest Pain: N/A Risk Factors: Risk Factors: DM, Current or recent (<one month) smoker, HTN, HLP, family history of CAD, obesity. Risk Scores: Score 0 - 3: 2.5% MACE over next 6 weeks - Discharge Home Score 4 - 6: 20.3% MACE over next 6 weeks - Admit for Clinical Observation Score 7 - 10: 72.7% MACE over next 6 weeks - Early Invasive Strategies (KATELYN DAWSON APRN) Course & Med Decision Making: Course & Med Decision Making Pertinent Labs and Imaging studies reviewed. (See chart for details) [] Patient is a 71-year-old male who has a right AKA with chronic back pain who reports right hip pain radiating into his leg. He has no cauda equina symptoms. He denies any injury. Urinalysis performed which showed bacteria but squamous cells no leukocytes, no nitrites and no bacteria likely indicating contamination.. I offered imaging of back which patient declined stating that he has had several images performed and he was told that he is got a problem with a distance L5. Patient's pain was treated in the emergency department. Patient will be discharged home with pain medication. I discussed with patient all findings and diagnostic testing as well as the need to follow-up with PCP for further evaluation and treatment or return to the ER if any new or worsening symptoms. Strict return precautions were also discussed at length. Patient voiced understanding and agreement with the plan. Patient is hemodynamically stable at the time of disposition. (KATELYN DAWSON APRN) Dragon Disclaimer: Dragon Disclaimer: This electronic medical record was generated, in whole or in part, using a voice recognition dictation system. (KATELYN DAWSON APRN) Attending Co-Sign The patient was seen and interviewed as well as examined at the bedside. The chart was reviewed. The case was discussed. Agree with the plan of care. (SANTINO DAVIDSON DO) Departure Departure: Impression: Primary Impression: Back pain Qualified Codes: M54.41 - Lumbago with sciatica, right side; G89.29 - Other chronic pain Disposition: HOME / SELF CARE / HOMELESS Condition: GOOD Referrals: SATISH GUEVARA MD (PCP) Patient Instructions: Back Pain, Adult Additional Instructions: You are seen in the emergency department today for chronic back and hip pain. This was treated with pain medication. This medication may cause sedation so do not take any need to be alert, driving a vehicle or with alcohol. Follow-up with your primary care provider on Saturday regarding your ER visit. Return to the emergency department if you develop worsening of your back pain, any new injuries, loss of bowel or bladder, numbness or tingling in your groin. Scripts Hydrocodone Bit/Acetaminophen (HYDROCODONE-APAP 5-325 ) 1 Each Tablet 1 TAB PO PRN Q6HRS PRN for PAIN for 2 Days, #8 TAB 0 Refills Prov: KATELYN DAWSON APRN 10/27/21 KATELYN DAWSON APRN October 27, 2021 15:52 SANTINO DAVIDSON DO October 28, 2021 07:05
[2021-10-27] MEDS ORDERED: ORPHENADRINE CITRATE 60 MG/2 ML VIAL. IM ONE (16:00)
[2021-10-27] MEDS ORDERED: HYDROcodone/APAP 5/325MG 1 TAB TABLET PO ONE (16:00)
[2021-10-27 16:52] LABS: CLARITY,URINE CLEAR; COLOR,URINE YELLOW; GLUCOSE,URINE NEG (NEG); NITRITE,URINE NEG (NEG); RBC,URINE OCC /HPF (0-2); UROBILINOGEN,URINE 0.2 mg/dL (0.2 mg/dL)
[2021-10-27 16:53] LABS: BACTERIA,URINE 0 /HPF (0-FEW); HYALINE CASTS, URINE OCC /HPF; SQUAMOUS EPITHELIAL CELL,UR OCC /LPF; WBC,URINE 20-40 /HPF (0-4)
[2021-10-27] MEDS ORDERED: HYDR-2155 PO (17:00)
== END 2021-10-27 17:05 | disposition home or self-care (01) ==
LOC: MERGE 15:07 → ER 15:07
DX: M54.41 Lumbago with sciatica, right side (principal); G89.29 Other chronic pain; Z90.49 Acquired absence of other specified parts of digestive tract; Z88.0 Allergy status to penicillin; Z88.8 Allergy status to other drugs, medicaments and biological substances
CPT/HCPCS: 81001; 87086; 96372; 99283; J2360